=== PATIENT | male | born 1950 | race Caucasian/White ===

== ENCOUNTER 2016-12-15 07:22 | Inpatient (IN) | payer MEDICARE, MEDICAID ==
[2016-12-15] MEDS ORDERED: Albuterol/Ipratropium 3.0-0.5 MG/3 ML Neb Soln NEB ONE (08:21)
--- NOTE | 2016-12-15 08:23 | EDM.PDOC ---
ED HISTORY OF PRESENT ILLNESS - General Chief Complaint: Respiratory Problem Stated Complaint: shortness of breath Time Seen by Provider: 12/15/16 08:00 Source of Information: Reports: Patient, [facility] records History Limitations: Reports: No limitations - History of Present Illness INITIAL COMMENTS - FREE TEXT/NARRATIVE: 66 yo wm with PMH of COPD oxygen dependent presents to ER with a 1 day history of worsening breathing. Pt reports he had a "bad day" yesterday and that prompted the halfway to send patient to ER. Pt reports associated productive cough and congestion. Pt denies any fever/chills, denies any chest pain. Symptom Onset Date: 12/14/16 Timing/Duration: Reports: Day(s): (1) Severity: moderate Improves with: Reports: Rest Worsens with: Reports: Breathing Context, General: Reports: Activity Associated Symptoms (General): Reports: cough, cough w sputum, malaise, shortness of breath, weakness. Denies: chest pain, diaphoresis, fever/chills, headaches, loss of appetite, nausea/vomiting, rash, seizure, syncope - Related Data Allergies/ADRs: Allergies Allergy/AdvReac Type Severity Reaction Status Date / Time nefazodone Allergy Cannot Verified 12/15/16 07:41 Remember trazodone Allergy Cannot Verified 12/15/16 07:41 Remember Home Meds: Home Meds Acetaminophen [Tylenol Arthritis] 1 tab PO BID@0800,199907/22/16 [History] Acetaminophen [Tylenol] 650 mg PO Q4H PRN 07/22/16 [History] Aspirin [Halfprin] 1 tab PO DAILY@1200 07/22/16 [History] Bisacodyl [Dulcolax] 1 supp RECTAL BEDTIME PRN 07/22/16 [History] Carvedilol 18.75 mg PO BID@0800,199907/22/16 [History] Clopidogrel [Plavix] 1 tab PO DAILY 07/22/16 [History] Divalproex Sodium [Depakote ER] 500 mg PO QID@08,12,16,20 07/22/16 [History] Ergocalciferol (Vitamin D2) [Vitamin D2] 1 tab PO DAILY@1200 07/22/16 [History] Escitalopram [Lexapro] 1 tab PO DAILY@0800 07/22/16 [History] Ferrous Sulfate 1 tab PO TIDMEALS 07/22/16 [History] Finasteride 1 tab PO DAILY@0800 07/22/16 [History] Fluticasone Propionate [Flonase] 2 spray NASBOTH DAILY 07/22/16 [History] Gabapentin [Neurontin] 1 cap PO BID@0800,2000 07/22/16 [History] Magnesium Hydroxide [Milk of Magnesia] 30 ml PO DAILY PRN 07/22/16 [History] Magnesium Oxide 1 tab PO BID@0800,1800 07/22/16 [History] Multivitamin [Men's Multi-Vitamin] 1 tab PO DAILY@1200 07/22/16 [History] QUEtiapine Fumarate [Seroquel] 500 mg PO BEDTIME 07/22/16 [History] Sennosides/Docusate Sodium [Senna S Tablet] 2 tab PO DAILY@1800 07/22/16 [ History] Sodium Chloride [Saline Nasal [place]] 1 spray NASBOTH Q1H PRN 07/22/16 [History] Tamsulosin [Flomax] 1 tab PO BEDTIME 07/22/16 [History] atorvaSTATin [Lipitor] 1 tab PO BEDTIME 07/22/16 [History] traMADol HCl [Tramadol HCl] 1 tab PO Q6H PRN 07/22/16 [History] Arformoterol [Brovana] 2 ml INH BID@1000,2200 12/15/16 [History] Budesonide [Pulmicort] 2 ml INH DAILY PRN 12/15/16 [History] Budesonide [Pulmicort] 2 ml INH DAILY@0600 12/15/16 [History] Furosemide 40 mg PO DAILY@0800 12/15/16 [History] Liraglutide [Victoza] 0.6 mg SQ DAILY@199912/15/16 [History] Past Medical History Respiratory History: Reports: COPD Genitourinary History: Reports: Chronic renal insuffiency Other Neuro History: confusion Psychiatric History: Reports: Addiction, Depression Endocrine/Metabolic History: Reports: Diabetes, type II, Other (see below) Other Endocrine/Metabolic History: noontoxic mutinodular goiter Dermatologic History: Reports: Decubitus ulcer - Infectious Disease History Infectious Disease History: Reports: Other (see below) Other Infectious Disease History: unknown Social & Family History - Tobacco Use Smoking Status *Q: Former Smoker - Caffeine Use Caffeine Use: Reports: Other Other Caffeine Use: unknown ED ROS GENERAL - Review of Systems Review Of Systems: See Below Constitutional: Reports: no symptoms HEENT: Reports: No symptoms Respiratory: Reports: Shortness of Breath, Wheezing, Cough, Sputum. Denies: Hemoptysis Cardiovascular: Reports: No symptoms Endocrine: Reports: no symptoms GI/Abdominal: Reports: No symptoms : Reports: no symptoms Musculoskeletal: Reports: no symptoms Skin: Reports: no symptoms Neurological: Reports: No Symptoms Psychiatric: Reports: No symptoms Hematologic/Lymphatic: Reports: no symptoms Immunologic: Reports: no symptoms ED EXAM, GENERAL - Physical Exam Exam: See Below Exam Limited By: No limitations General Appearance: alert, WD/WN, no apparent distress Ears: normal external exam, normal canal, hearing grossly normal, normal TMs Nose: normal inspection, normal mucosa, no blood Throat/Mouth: Normal inspection, Normal lips, Normal teeth, Normal gums, Normal oropharynx, Normal voice, No airway compromise Head: atraumatic, normocephalic Neck: normal inspection, supple, non-tender, full range of motion Respiratory/Chest: decreased breath sounds, rhonchi, wheezing Cardiovascular: normal peripheral pulses, regular rate, rhythm, no edema, no gallop, no JVD, no murmur, no rub GI/Abdominal: normal bowel sounds, soft, non tender, no organomegaly, no distention, no abnormal bruit, no mass Back Exam: normal inspection, full range of motion, NT Extremities: pedal edema Neurological: alert, oriented, CN II-XII intact, normal cognition, normal gait, normal reflexes, no motor/sensory deficits Psychiatric: normal affect, normal mood Skin Exam: Warm, Dry, Intact, Normal color, Rash (psoriasis) Lymphatic: no adenopathy EKG INTERPRETATION EKG Date: 12/15/16 Time: 07:55 Rhythm: NSR Rate (beats/min): 85 [place]: normal P-wave: present QRS: normal ST-T: normal QT: normal Comparison: NA - no prior EKG Course - Vital Signs Last Recorded V/S: Last Vital Signs Temp 36.5 C 12/15/16 07:28 Pulse 87 12/15/16 07:28 Resp 20 12/15/16 07:28 BP 165/53 H 12/15/16 07:28 Pulse Ox 95 12/15/16 08:21 - Orders/Labs/Meds Orders: Active Orders 24 hr Category Date Time Status Patient Status Manage Transfer [TRANSFER] Routine ADT 12/15/16 09:34 Ordered Patient Status [ADT] Routine ADT 12/15/16 09:36 Ordered Bedrest Bathroom Privileges [RC] ASDIRECTED Care 12/15/16 09:37 Active Blood Glucose Check, Bedside [RC] QIDACANDBED Care 12/15/16 09:37 Active Cardiac Monitoring [RC] . DIRECTED Care 12/15/16 09:34 Active Cardiac Monitoring [RC] CONTINUOUS Care 12/15/16 09:37 Active EKG Documentation Completion [RC] ASDIRECTED Care 12/15/16 07:42 Active Oxygen Therapy [RC] PRN Care 12/15/16 09:37 Active Oxygen Therapy, ED [RC] ASDIRECTED Care 12/15/16 08:21 Active Peripheral IV Care [RC] . DIRECTED Care 12/15/16 09:39 Active RT Aerosol Therapy [RC] ASDIRECTED Care 12/15/16 08:21 Active RT Aerosol Therapy [RC] ASDIRECTED Care 12/15/16 09:39 Active VTE/DVT Education [RC] PER UNIT ROUTINE Care 12/15/16 09:37 Active Vital Signs [RC] Q4H Care 12/15/16 09:36 Active [employer] Diet [DIET] Diet 12/15/16 Breakfast Active CXR [Chest 1V Frontal] [CR] Stat Exams 12/15/16 07:41 Taken Chest wo Cont [CT] Stat Exams 12/15/16 08:34 Taken ABG [BLOOD GAS ARTERIAL] [BG] Stat Lab 12/15/16 08:34 Ordered BASIC METABOLIC PANEL,BMP [CHEM] AM Lab 12/16/16 05:11 Ordered CBC WITH AUTO DIFF [HEME] AM Lab 12/16/16 05:11 Ordered CULTURE BLOOD [BC] Stat Lab 12/15/16 09:39 Ordered CULTURE BLOOD [BC] Stat Lab 12/15/16 09:39 Ordered CULTURE SPUTUM + SMEAR [RM] Stat Lab 12/15/16 08:00 Received Acetaminophen [Tylenol] Med 12/15/16 09:37 Active 650 mg PO Q4H PRN Albuterol/Ipratropium [DuoNeb 3.0-0.5 MG/3 ML] Med 12/15/16 09:37 Active 3 ml NEB Q4H PRN Piperacillin/Tazobactam [Zosyn] 3.375 gm Med 12/15/16 09:45 Ordered Sodium Chloride 0.9% [Normal Saline] 50 ml IV Q6H Sodium Chloride 0.9% [Normal Saline] 1,000 ml Med 12/15/16 09:45 Active IV ASDIRECTED Sodium Chloride 0.9% [Syrex Flush] Med 12/15/16 09:37 Active 5 ml FLUSH Q8HR PRN Blood Culture x2 Reflex Set [OM.PC] Stat Oth 12/15/16 09:37 Ordered Peripheral IV Insertion Adult [OM.PC] Routine Oth 12/15/16 09:37 Ordered Resuscitation Status Routine Resus Stat 12/15/16 09:36 Ordered EKG 12 Lead [EK] Routine Ther 12/15/16 07:41 Ordered Medication Orders Acetaminophen (Tylenol) 650 mg PO Q4H PRN PRN Reason: Pain (Mild 1-3)/fever Albuterol/Ipratropium (Duoneb 3.0-0.5 Mg/3 Ml) 3 ml NEB Q4H PRN PRN Reason: Shortness Of Breath/wheezing Sodium Chloride (Normal Saline) 1,000 mls @ 75 mls/hr IV ASDIRECTED LAN Sodium Chloride (Syrex Flush) 5 ml FLUSH Q8HR PRN PRN Reason: Keep Vein Open Labs: Laboratory Tests 12/15/16 12/15/16 12/15/16 Range/Units 08:00 08:00 08:00 WBC 11.4 H (5.0-10.0) 10^3/uL RBC 3.40 L (4.50-6.00) 10^6/uL Hgb 10.2 L (13.0-17.0) g/dL Hct 30.7 L (40.0-52.0) % MCV 90.1 (82.0-92.0) fL MCH 30.0 (27.0-31.0) pg MCHC 33.3 (32.0-36.0) g/dL RDW 15.9 H (11.5-14.5) % Plt Count 194 (150-300) 10^3/uL MPV 7.1 L (7.4-10.4) fL Neut % (Auto) 68.4 (50.0-70.0) % Lymph % (Auto) 13.1 L (20.0-40.0) % Lynn % (Auto) 16.5 H (2.0-8.0) % Eos % (Auto) 2.0 (1.0-3.0) % Baso % (Auto) 0.0 (0.0-1.0) % Neut # (Auto) 7.8 H (2.5-7.0) 10^3/uL Lymph # (Auto) 1.5 (1.0-4.0) 10^3/uL Lynn # (Auto) 1.9 H (0.1-0.8) 10^3/uL Eos # (Auto) 0.2 (0.1-0.3) 10^3/uL Baso # (Auto) 0.0 (0.0-0.1) 10^3/uL Sodium 138 (136-145) mmol/L Potassium 4.8 (3.3-5.3) mmol/L Chloride 97 L (98-115) mmol/L Carbon Dioxide 42.0 H (21.0-32.0) mmol/L BUN 22 (6-25) mg/dL Creatinine 1.63 H (0.51-1.17) mg/dL Est Cr Clr Drug Dosing 40.55 mL/min Estimated GFR (MDRD) 42 mL/min Glucose 153 H (70-110) mg/dL Calcium 8.9 (8.7-10.3) mg/dL Total Bilirubin 0.3 (0.2-1.0) mg/dL AST 37 (15-37) U/L ALT 4 L (12-78) U/L Alkaline Phosphatase 80 (46-116) IU/L Creatine Kinase 132 (26-276) U/L CK-MB (CK-2) 1.70 (0.00-4.30) ng/mL Troponin I 0.05 (0.00-0.070) ng/mL B-Natriuretic Peptide 103 H (0-100) pg/mL Total Protein 7.4 (6.4-8.2) g/dL Albumin 2.42 L (3.00-4.80) g/dL Meds: Medications Generic Name Dose Route Start Last Admin Trade Name Freq PRN Reason Stop Dose Admin Acetaminophen 650 mg 12/15/16 09:37 Tylenol PO Q4H PRN Pain (Mild 1-3)/fever Albuterol/Ipratropium 3 ml 12/15/16 09:37 Duoneb 3.0-0.5 Mg/3 Ml NEB Q4H PRN Shortness Of Breath/wheezing Sodium Chloride 1,000 mls @ 75 mls/hr 12/15/16 09:45 Normal Saline IV ASDIRECTED LAN Sodium Chloride 5 ml 12/15/16 09:37 Syrex Flush FLUSH Q8HR PRN Keep Vein Open Discontinued Medications Generic Name Dose Route Start Last Admin Trade Name Freq PRN Reason Stop Dose Admin Albuterol/Ipratropium 3 ml 12/15/16 08:21 12/15/16 08:31 Duoneb 3.0-0.5 Mg/3 Ml NEB 12/15/16 08:22 3 ml ONETIME ONE Administration - Radiology Interpretation Free Text/Narrative:: CXR- Left lower lobe consolidation and atelectesis- recommending CT thorax CT thorax- Bilateral infiltrates Departure - Departure Time of Disposition: 09:33 Disposition: Admitted As Inpatient 64 Condition: fair Clinical Impression: Hypoxemia Pneumonia Qualifiers: Pneumonia type: due to unspecified organism Laterality: bilateral Lung location : lower lobe of lung Qualified Code(s): J18.9 - Pneumonia, unspecified organism Instructions: Chronic Obstructive Pulmonary Disease Exacerbation, [id number] , Shortness of Breath, [id number], Hypoxemia, Community-Acquired Pneumonia, Adult Referrals: Priscilla Castaneda MD [Primary Care Provider] - Forms: ED Department Discharge - My Orders Last 24 Hours: My Active Orders 12/15/16 07:41 CXR [Chest 1V Frontal] [CR] Stat EKG 12 Lead [EK] Routine 12/15/16 07:42 EKG Documentation Completion [RC] ASDIRECTED 12/15/16 08:00 CULTURE SPUTUM + SMEAR [RM] Stat 12/15/16 08:21 Oxygen Therapy, ED [RC] ASDIRECTED RT Aerosol Therapy [RC] ASDIRECTED 12/15/16 08:34 Chest wo Cont [CT] Stat ABG [BLOOD GAS ARTERIAL] [BG] Stat 12/15/16 09:34 Patient Status Manage Transfer [TRANSFER] Routine Cardiac Monitoring [RC] . DIRECTED 12/15/16 09:36 Patient Status [ADT] Routine Vital Signs [RC] Q4H Resuscitation Status Routine 12/15/16 09:37 Bedrest Bathroom Privileges [RC] ASDIRECTED Blood Glucose Check, Bedside [RC] QIDACANDBED Cardiac Monitoring [RC] CONTINUOUS Oxygen Therapy [RC] PRN VTE/DVT Education [RC] PER UNIT ROUTINE Acetaminophen [Tylenol] 650 mg PO Q4H PRN Albuterol/Ipratropium [DuoNeb 3.0-0.5 MG/3 ML] 3 ml NEB Q4H PRN Sodium Chloride 0.9% [Syrex Flush] 5 ml FLUSH Q8HR PRN Blood Culture x2 Reflex Set [OM.PC] Stat Peripheral IV Insertion Adult [OM.PC] Routine 12/15/16 09:39 Peripheral IV Care [RC] . DIRECTED RT Aerosol Therapy [RC] ASDIRECTED CULTURE BLOOD [BC] Stat CULTURE BLOOD [BC] Stat 12/15/16 09:45 Piperacillin/Tazobactam [Zosyn] 3.375 gm Sodium Chloride 0.9% [Normal Saline] 50 ml IV Q6H Sodium Chloride 0.9% [Normal Saline] 1,000 ml IV ASDIRECTED 12/15/16 Breakfast [employer] Diet [DIET] 12/16/16 05:11 BASIC METABOLIC PANEL,BMP [CHEM] AM CBC WITH AUTO DIFF [HEME] AM - Assessment/Plan Last 24 Hours: My Active Orders 12/15/16 07:41 CXR [Chest 1V Frontal] [CR] Stat EKG 12 Lead [EK] Routine 12/15/16 07:42 EKG Documentation Completion [RC] ASDIRECTED 12/15/16 08:00 CULTURE SPUTUM + SMEAR [RM] Stat 12/15/16 08:21 Oxygen Therapy, ED [RC] ASDIRECTED RT Aerosol Therapy [RC] ASDIRECTED 12/15/16 08:34 Chest wo Cont [CT] Stat ABG [BLOOD GAS ARTERIAL] [BG] Stat 12/15/16 09:34 Patient Status Manage Transfer [TRANSFER] Routine Cardiac Monitoring [RC] . DIRECTED 12/15/16 09:36 Patient Status [ADT] Routine Vital Signs [RC] Q4H Resuscitation Status Routine 12/15/16 09:37 Bedrest Bathroom Privileges [RC] ASDIRECTED Blood Glucose Check, Bedside [RC] QIDACANDBED Cardiac Monitoring [RC] CONTINUOUS Oxygen Therapy [RC] PRN VTE/DVT Education [RC] PER UNIT ROUTINE Acetaminophen [Tylenol] 650 mg PO Q4H PRN Albuterol/Ipratropium [DuoNeb 3.0-0.5 MG/3 ML] 3 ml NEB Q4H PRN Sodium Chloride 0.9% [Syrex Flush] 5 ml FLUSH Q8HR PRN Blood Culture x2 Reflex Set [OM.PC] Stat Peripheral IV Insertion Adult [OM.PC] Routine 12/15/16 09:39 Peripheral IV Care [RC] . DIRECTED RT Aerosol Therapy [RC] ASDIRECTED CULTURE BLOOD [BC] Stat CULTURE BLOOD [BC] Stat 12/15/16 09:45 Piperacillin/Tazobactam [Zosyn] 3.375 gm Sodium Chloride 0.9% [Normal Saline] 50 ml IV Q6H Sodium Chloride 0.9% [Normal Saline] 1,000 ml IV ASDIRECTED 12/15/16 Breakfast [employer] Diet [DIET] 12/16/16 05:11 BASIC METABOLIC PANEL,BMP [CHEM] AM CBC WITH AUTO DIFF [HEME] AM Assessment:: 1. left lower lobe pneumonia- halfway acquired 2. hypoxia 3. COPD Plan: 1. admit to hospital- [facility] 2. Zosyn 3.375g IV 3. duoneb treatments 4. supportive care
[2016-12-15] MEDS ORDERED: Albuterol/Ipratropium 3.0-0.5 MG/3 ML Neb Soln NEB PRN (09:37)
[2016-12-15] MEDS ORDERED: Acetaminophen 325 MG Tab PO PRN (09:37)
[2016-12-15] MEDS ORDERED: Sodium Chloride 0.9% 5 ML Syringe FLUSH PRN (09:37)
[2016-12-15] MEDS ORDERED: Piperacillin/Tazobactam 3.375 GM in Sodium Chloride 0.9% 50 ML IV SCH (09:45)
[2016-12-15] MEDS ORDERED: Nitroglycerin 0.4 MG Tab.SL SL PRN (11:25)
[2016-12-15] MEDS ORDERED: Atropine 0.1 MG/ML 10 ML Syringe IVPUSH PRN (11:25)
[2016-12-15] MEDS ORDERED: Lidocaine 2% 100 MG/5 ML Syringe IVPUSH PRN (11:25)
[2016-12-15] MEDS ORDERED: EPINEPHrine 1:10,000 1 MG/10 ML Syringe IVPUSH PRN (11:25)
[2016-12-15] MEDS ORDERED: Ceres/Mineral Oil/Petrolatum/Wool Alcohol Cream 57 GM Tube TOP PRN (12:01)
[2016-12-15] MEDS ORDERED: Bisacodyl 10 MG Supp RECTAL PRN (12:01)
[2016-12-15] MEDS ORDERED: Magnesium Hydroxide 400 MG/5 ML Susp 30 ML Cup PO PRN (12:01)
[2016-12-15] MEDS ORDERED: Fluticasone Propionate Nasal Spray 16 GM Bottle NASBOTH PRN (12:01)
[2016-12-15] MEDS ORDERED: Nystatin Topical Powder 15 GM Bottle TOP PRN ×2 (12:01)
[2016-12-15] MEDS ORDERED: Arformoterol 15 MCG/2 ML Neb Soln INH SCH ×2 (13:00→20:00)
[2016-12-15] MEDS ORDERED: Aspirin 81 MG Tab.EC PO SCH (13:00)
[2016-12-15] MEDS ORDERED: Clopidogrel 75 MG Tab PO SCH (13:00)
[2016-12-15] MEDS ORDERED: Levofloxacin/Dextrose 5%-Water 50 ML IV SCH (13:00)
[2016-12-15] MEDS ORDERED: traMADol 50 MG Tab PO PRN (13:00)
[2016-12-15] MEDS: Albuterol/Ipratropium 3.0-0.5 MG/3 ML Neb Soln NEB SCH ×3 (13:11→22:21)
[2016-12-15] MEDS ORDERED: Levofloxacin/Dextrose 5%-Water 100 ML IV SCH (14:00)
[2016-12-15] MEDS: Insulin Detemir 100 Units/ML 3 ML Pen SUBCUT SCH ×2 (14:34→20:52)
[2016-12-15] MEDS: predniSONE 20 MG Tab PO SCH (14:45)
[2016-12-15] MEDS: Carvedilol 12.5 MG Tab PO SCH ×2 (14:46→20:52)
[2016-12-15] MEDS: Finasteride 5 MG Tab PO SCH (14:47)
[2016-12-15] MEDS: Gabapentin 300 MG Cap PO SCH ×2 (14:47→20:53)
[2016-12-15] MEDS: Furosemide 40 MG Tab PO SCH (14:48)
[2016-12-15] MEDS: Magnesium Oxide 500 MG Tab PO SCH ×2 (14:49→18:00)
[2016-12-15] MEDS: Escitalopram 10 MG Tab PO SCH (14:49)
[2016-12-15] MEDS: Acetaminophen 650 MG Tab.ER PO SCH ×2 (14:49→20:54)
[2016-12-15] MEDS: Divalproex Sodium Delayed-Release 250 MG Tab.CR PO SCH ×3 (15:03→20:52)
[2016-12-15] MEDS: Sodium Chloride 0.9% 1,000 ML IV SCH (17:10)
[2016-12-15] MEDS: Piperacillin/Tazobactam/Dext 50 ML IV SCH ×2 (17:15→22:24)
[2016-12-15] MEDS ORDERED: INSULIN GLARGINE SQ SCH (20:00)
[2016-12-15] MEDS ORDERED: [UNRECOGNIZED DRUG - OTHER] SQ SCH (20:00)
[2016-12-15] MEDS: QUEtiapine 100 MG Tab PO SCH (20:54)
[2016-12-15] MEDS: Tamsulosin 0.4 MG Cap.ER PO SCH (20:54)
[2016-12-15] MEDS: Liraglutide (rDNA Origin) 0.6 MG/0.1 ML 3 ML Pen SUBCUT SCH (22:21)
[2016-12-16] MEDS: Piperacillin/Tazobactam/Dext 50 ML IV SCH ×4 (05:07→22:25)
[2016-12-16] MEDS: Albuterol/Ipratropium 3.0-0.5 MG/3 ML Neb Soln NEB SCH ×4 (05:56→22:23)
[2016-12-16] MEDS: Sodium Chloride 0.9% 1,000 ML IV SCH ×2 (08:12→22:25)
[2016-12-16] MEDS: Insulin Detemir 100 Units/ML 3 ML Pen SUBCUT SCH ×2 (08:14→20:57)
[2016-12-16] MEDS: Carvedilol 12.5 MG Tab PO SCH ×2 (08:16→21:02)
[2016-12-16] MEDS: Furosemide 40 MG Tab PO SCH (08:17)
[2016-12-16] MEDS: Divalproex Sodium Delayed-Release 250 MG Tab.CR PO SCH ×4 (08:17→21:03)
[2016-12-16] MEDS: Magnesium Oxide 500 MG Tab PO SCH ×2 (08:18→18:43)
[2016-12-16] MEDS: predniSONE 20 MG Tab PO SCH (08:18)
[2016-12-16] MEDS: Gabapentin 300 MG Cap PO SCH ×2 (08:18→21:03)
[2016-12-16] MEDS: Escitalopram 10 MG Tab PO SCH (08:18)
[2016-12-16] MEDS: Acetaminophen 650 MG Tab.ER PO SCH ×2 (08:19→21:03)
[2016-12-16] MEDS: Finasteride 5 MG Tab PO SCH (08:19)
--- NOTE | 2016-12-16 09:19 | PCM.HP ---
H&P History of Present Illness - General Date of Service: 12/16/16 Source of Information: Patient, Old records, Provider, RN History Limitations: Reports: No limitations - History of Present Illness Initial Comments - Free Text/Narative: This 66-year-old obese male who is a resident of a long-term care Center was admitted yesterday due to pneumonia. He does have a history of COPD and is on chronic oxygenation. He stated he had some worsening breathing with cough. He also stated that he coughed quite a bit the last week or 2 a broad quite a bit of phlegm. He did have an Ellik dated white count slightly will be worked up in the ED. Chest x-ray determined possible lung collapse which was not validated on subsequent CT. CT shows bilateral infiltrates without evidence of lung collapse also demonstrated Goiter. Undetermined if MRSA history. - Related Data Allergies/Adverse Reactions: Allergies Allergy/AdvReac Type Severity Reaction Status Date / Time nefazodone Allergy Cannot Verified 12/15/16 07:41 Remember trazodone Allergy Cannot Verified 12/15/16 07:41 Remember Home Medications: Home Meds Acetaminophen [Tylenol Arthritis] 1 tab PO BID@0800,199907/22/16 [History] Acetaminophen [Tylenol] 650 mg PO Q4H PRN 07/22/16 [History] Aspirin [Halfprin] 1 tab PO DAILY@1200 07/22/16 [History] Bisacodyl [Dulcolax] 10 mg RECTAL BEDTIME PRN 07/22/16 [History] Carvedilol 18.75 mg PO BID@0800,199907/22/16 [History] Clopidogrel [Plavix] 75 mg PO DAILY 07/22/16 [History] Escitalopram [Lexapro] 20 mg PO DAILY@0800 07/22/16 [History] Ferrous Sulfate 325 mg PO TIDMEALS 07/22/16 [History] Finasteride 5 mg PO DAILY@0800 07/22/16 [History] Fluticasone Propionate [Flonase] 2 spray NASBOTH DAILY PRN 07/22/16 [History] Gabapentin [Neurontin] 300 mg PO BID@0800,199907/22/16 [History] Magnesium Hydroxide [Milk of Magnesia] 30 ml PO DAILY PRN 07/22/16 [History] Magnesium Oxide 400 mg PO BID@0800,1800 07/22/16 [History] Multivitamin [Men's Multi-Vitamin] 1 tab PO DAILY@1200 07/22/16 [History] QUEtiapine Fumarate [Seroquel] 500 mg PO BEDTIME 07/22/16 [History] Sennosides/Docusate Sodium [Senna S Tablet] 2 tab PO DAILY@1800 07/22/16 [ History] Sodium Chloride [Saline Nasal [place]] 1 spray NASBOTH Q1H PRN 07/22/16 [History] Tamsulosin [Flomax] 0.4 mg PO BEDTIME 07/22/16 [History] atorvaSTATin [Lipitor] 40 mg PO BEDTIME 07/22/16 [History] traMADol HCl [Tramadol HCl] 50 mg PO Q6H PRN 07/22/16 [History] Aquaphor Advanced Therapy Ointment 1 applic TOP BID PRN 12/15/16 [History] Arformoterol [Brovana] 2 ml INH BID@1000,2200 12/15/16 [History] Budesonide [Pulmicort] 2 ml INH DAILY PRN 12/15/16 [History] Budesonide [Pulmicort] 2 ml INH DAILY@0600 12/15/16 [History] Cholecalciferol (Vitamin D3) [Vitamin D3] 2,000 unit PO DAILY@1200 12/15/16 [ History] Divalproex Sodium 250 mg PO QID@08,12,16,20 12/15/16 [History] Furosemide 40 mg PO DAILY@0800 12/15/16 [History] Insulin Glarg,Human.Rec.Analog [LantUS] 85 unit SQ BID@0800,199912/15/16 [ History] Insulin Glarg,Human.Rec.Analog [Lantus] 85 units SQ BID@0800,199912/15/16 [ History] Liraglutide [Victoza] 0.6 mg SQ DAILY@199912/15/16 [History] Non-Formulary Medication [NF Drug] 1 applic TOP BID PRN 12/15/16 [History] Nystatin 1 applic TOP DAILY PRN 12/15/16 [History] Nystatin [Nystop] 1 applic TOP DAILY PRN 12/15/16 [History] Selenium Sulfide/Aloe Vera [Selsun Blue Moist 1% Shampoo] 1 applic TOP ASDIRECTED PRN 12/15/16 [History] Selenium Sulfide/Aloe Vera [Selsun Blue Moist 1% Shampoo] 1 applic TOP WEEKLY [History] metFORMIN HCl [Metformin HCl ER] 1 tab PO DAILY 12/15/16 [History] metFORMIN HCl [Metformin HCl ER] 500 mg PO WITHBREAKFAST 12/15/16 [History] Past Medical History HEENT History: Reports: Cataract Cardiovascular History: Reports: High cholesterol, Hypertension Respiratory History: Reports: COPD Other Respiratory History: Emphysema Gastrointestinal History: Reports: Other (see below) Other Gastrointestinal History: Other diseases of the digestive system Genitourinary History: Reports: Chronic renal insuffiency Musculoskeletal History: Reports: Back pain, chronic, Neck pain, chronic, Osteoarthritis Neurological History: Reports: Other (see below) Other Neuro History: confusion Psychiatric History: Reports: Addiction, Depression Endocrine/Metabolic History: Reports: Diabetes, type II, Other (see below) Other Endocrine/Metabolic History: noontoxic mutinodular goiter Dermatologic History: Reports: Decubitus ulcer - Infectious Disease History Infectious Disease History: Reports: Other (see below) Other Infectious Disease History: unknown Social & Family History - Family History HEENT: Reports: Cataract (Cataract in his mother), Macular degeneration (Mother had cataract and father had macular degeneration) Cardiac: Reports: [place] (Father with myocardial infarction) Respiratory: Reports: None GI: Reports: None : Reports: Renal disease/insufficiency, Other (see below) (Paternal grandmother kidney disease) Musculoskeletal: Reports: None Neurological: Reports: None Psychiatric: Reports: None Endocrine/Metabolic: Reports: None Hematologic: Reports: None Immunologic: Reports: None Dermatologic: Reports: None Oncologic: Reports: None - Tobacco Use Smoking Status *Q: Former Smoker Used Tobacco, but Quit: Yes Month Tobacco Last Used: 2015 - Caffeine Use Caffeine Use: Reports: Soda Other Caffeine Use: unknown - Recreational Drug Use Recreational Drug Use: No H&P Review of Systems - Review of Systems: Review Of Systems: See Below General: Reports: no symptoms HEENT: Reports: other (runny nose) Pulmonary: Reports: Shortness of Breath, Cough (mild--sputum past 2-3 weeks copious), Sputum, Other (uses skooter at NH, decline in tolerance) Cardiovascular: Reports: dyspnea on exertion, edema Gastrointestinal: Reports: Abdominal pain. Denies: Constipation (2 large bm last night. ), Diarrhea Genitourinary: Reports: no symptoms Skin: Reports: rash, change in color Psychiatric: Reports: no symptoms Neurological: Reports: No Symptoms, Pre-Existing Deficit, Gait Disturbance Exam - Exam Exam: See Below - Vital Signs Vital Signs: Last Vital Signs Temp 96.7 F 12/16/16 07:00 Pulse 62 12/16/16 08:16 Resp 20 12/16/16 07:00 BP 145/63 H 12/16/16 08:16 Pulse Ox 96 12/16/16 07:00 Weight: 265 lb 6.4 oz - Exam Quality Assessment: supplemental oxygen General: alert, oriented, cooperative. No: mild distress HEENT: Hearing intact, Mucosa moist & pink, Rhinitis Neck: supple, trachea midline. No: JVD Lungs: Rhonchi Cardiovascular: regular rate, regular rhythm Abdomen: Normal Bowel Sounds, Soft (Male) Exam: Deferred Skin: rash (fungal in appearance rash right lower abd--intergo fold ), other Neurological: cranial nerves intact, normal speech, other (Gait not assessed) Neuro Extensive - Mental Status: alert, oriented x3, normal mood/affect, normal cognition Neuro Extensive - Motor, Sensory, Reflexes: CN II-XII intact (Grossly intact). No: hemiplagia (L), hemiplagia (R) Psychiatric: alert, normal affect, normal mood - Patient Data Lab Results last 24 hrs: Laboratory Results - last 24 hr 12/15/16 12/15/16 12/15/16 Range/Units 11:28 17:58 20:50 WBC (5.0-10.0) 10^3/uL RBC (4.50-6.00) 10^6/uL Hgb (13.0-17.0) g/dL Hct (40.0-52.0) % MCV (82.0-92.0) fL MCH (27.0-31.0) pg MCHC (32.0-36.0) g/dL RDW (11.5-14.5) % Plt Count (150-300) 10^3/uL MPV (7.4-10.4) fL Neut % (Auto) (50.0-70.0) % Lymph % (Auto) (20.0-40.0) % Lynn % (Auto) (2.0-8.0) % Eos % (Auto) (1.0-3.0) % Baso % (Auto) (0.0-1.0) % Neut # (Auto) (2.5-7.0) 10^3/uL Lymph # (Auto) (1.0-4.0) 10^3/uL Lynn # (Auto) (0.1-0.8) 10^3/uL Eos # (Auto) (0.1-0.3) 10^3/uL Baso # (Auto) (0.0-0.1) 10^3/uL Sodium (136-145) mmol/L Potassium (3.3-5.3) mmol/L Chloride (98-115) mmol/L Carbon Dioxide (21.0-32.0) mmol/L BUN (6-25) mg/dL Creatinine (0.51-1.17) mg/dL Est Cr Clr Drug Dosing mL/min Estimated GFR (MDRD) mL/min Glucose (70-110) mg/dL POC Glucose 157 H 197 H 385 H (74-106) mg/dl Calcium (8.7-10.3) mg/dL 12/16/16 12/16/16 12/16/16 Range/Units 06:22 07:55 07:55 WBC 6.5 (5.0-10.0) 10^3/uL RBC 3.13 L (4.50-6.00) 10^6/uL Hgb 9.4 L (13.0-17.0) g/dL Hct 28.3 L (40.0-52.0) % MCV 90.6 (82.0-92.0) fL MCH 30.2 (27.0-31.0) pg MCHC 33.3 (32.0-36.0) g/dL RDW 15.9 H (11.5-14.5) % Plt Count 167 (150-300) 10^3/uL MPV 6.9 L (7.4-10.4) fL Neut % (Auto) 67.4 (50.0-70.0) % Lymph % (Auto) 19.0 L (20.0-40.0) % Lynn % (Auto) 13.2 H (2.0-8.0) % Eos % (Auto) 0.1 L (1.0-3.0) % Baso % (Auto) 0.3 (0.0-1.0) % Neut # (Auto) 4.4 (2.5-7.0) 10^3/uL Lymph # (Auto) 1.2 (1.0-4.0) 10^3/uL Lynn # (Auto) 0.9 H (0.1-0.8) 10^3/uL Eos # (Auto) 0.0 L (0.1-0.3) 10^3/uL Baso # (Auto) 0.0 (0.0-0.1) 10^3/uL Sodium 135 L (136-145) mmol/L Potassium 4.8 (3.3-5.3) mmol/L Chloride 93 L (98-115) mmol/L Carbon Dioxide 39.4 H (21.0-32.0) mmol/L BUN 30 H (6-25) mg/dL Creatinine 1.60 H (0.51-1.17) mg/dL Est Cr Clr Drug Dosing 39.88 mL/min Estimated GFR (MDRD) 43 mL/min Glucose 272 H (70-110) mg/dL POC Glucose 267 H (74-106) mg/dl Calcium 8.6 L (8.7-10.3) mg/dL Result Diagrams: 12/17/16 07:05 12/17/16 07:05 *Q Meaningful Use (ADM) - VTE *Q VTE Criteria *Q: - Stroke *Q Stroke Criteria *Q: - AMI *Q AMI Criteria *Q: Problem List Initiated/Reviewed/Updated: Yes Orders Last 24hrs: Active Orders 24 hr Category Date Time Status Bedrest Bathroom Privileges [] ASDIRECTED Care 12/15/16 09:37 Active Blood Glucose Check, Bedside [] QIDACANDBED Care 12/15/16 09:37 Active Cardiac Monitoring [] 0300,0700,1100,1500,1900,2300 Care 12/15/16 09:37 Active Incentive Spirometry [RT Incentive Spirometry] [] Care 12/15/16 13:02 Active ASDIRECTED Oxygen Therapy [] DAILY Care 12/15/16 09:37 Active RT Aerosol Therapy [RC] ASDIRECTED Care 12/15/16 09:39 Active CULTURE BLOOD [BC] Stat Lab 12/15/16 09:39 Ordered CULTURE BLOOD [BC] Stat Lab 12/15/16 09:39 Ordered Acetaminophen [Tylenol Arthritis Pain] Med 12/15/16 13:00 Active 650 mg PO BID@0800,2000 Acetaminophen [Tylenol] Med 12/15/16 09:37 Active 650 mg PO Q4H PRN Albuterol/Ipratropium [DuoNeb 3.0-0.5 MG/3 ML] Med 12/15/16 13:01 Active 3 ml NEB Q6HRRT Aspirin [Halfprin] Med 12/15/16 13:00 Hold 81 mg PO DAILY@1200 Atropine [Atropine 0.1 MG/ML] Med 12/15/16 11:25 Active 0 mg IVPUSH ASDIRECTED PRN Bisacodyl [Dulcolax] Med 12/15/16 12:01 Active 10 mg RECTAL BEDTIME PRN Carvedilol [Coreg] Med 12/15/16 13:00 Active 18.75 mg PO BID@0800,2000 [place]/Min Oil/Orquidea/Wool Alcoh [Eucerin Creme] Med 12/15/16 12:01 Active 0 gm TOP BID PRN Clopidogrel [Plavix] Med 12/15/16 13:00 Hold 75 mg PO DAILY Divalproex Sodium Med 12/15/16 13:00 Active 250 mg PO QID@08,12,16,20 Docusate Sodium/Sennosides [Senna Plus] Med 12/15/16 18:00 Active 2 tab PO DAILY@1800 EPINEPHrine [EPINEPHrine 1:10,000] Med 12/15/16 11:25 Active 1 mg IVPUSH ASDIRECTED PRN Escitalopram [Lexapro] Med 12/15/16 13:00 Active 20 mg PO DAILY@0800 Finasteride [Proscar] Med 12/15/16 13:00 Active 5 mg PO DAILY@0800 Fluticasone Propionate [Flonase] Med 12/15/16 12:01 Active 0 gm NASBOTH DAILY PRN Furosemide [Lasix] Med 12/15/16 13:00 Active 40 mg PO DAILY@0800 Gabapentin [Neurontin] Med 12/15/16 13:00 Active 300 mg PO BID@0800,1999 Insulin Detemir [Levemir] Med 12/15/16 13:00 Active 85 unit SUBCUT BID@08,1999 Levofloxacin/Dextrose 5%-Water [Levaquin in D5W 250 MG/ Med 12/15/16 13:00 Active 50 ML] 50 ml IV Q48H Levofloxacin/Dextrose 5%-Water [Levaquin in D5W 500 MG/ Med 12/15/16 14:00 Active 100 ML] 100 ml IV Q48H Lidocaine 2% [Xylocaine 2%] Med 12/15/16 11:25 Active 0 mg IVPUSH ASDIRECTED PRN Liraglutide [Victoza] Med 12/15/16 20:00 Active 0.6 mg SUBCUT DAILY@1999 Magnesium Hydroxide [Milk of Magnesia] Med 12/15/16 12:01 Active 30 ml PO DAILY PRN Magnesium Oxide Med 12/15/16 13:00 Active 500 mg PO BID@0800,1800 Nitroglycerin [Nitrostat] Med 12/15/16 11:25 Active 0.4 mg SL ASDIRECTED PRN Nystatin [Nystop] Med 12/15/16 12:01 Active 0 gm TOP DAILY PRN Piperacillin/Tazobactam/Dext [Zosyn in Dextrose Iso- Med 12/15/16 17:00 Active Osmotic 3.375 GM] 50 ml IV Q6HR QUEtiapine [SEROquel] Med 12/15/16 21:00 Active 500 mg PO BEDTIME Sodium Chloride 0.9% [Normal Saline] 1,000 ml Med 12/15/16 09:45 Active IV ASDIRECTED Sodium Chloride 0.9% [Syrex Flush] Med 12/15/16 09:37 Active 5 ml FLUSH Q8HR PRN Tamsulosin [Flomax] Med 12/15/16 21:00 Active 0.4 mg PO BEDTIME predniSONE Med 12/15/16 13:00 Active 60 mg PO WITHBREAKFAST traMADol [Ultram] Med 12/15/16 13:00 Active 50 mg PO Q6HR PRN Blood Culture x2 Reflex Set [OM.PC] Stat Oth 12/15/16 09:37 Ordered Peripheral IV Insertion Adult [OM.PC] Routine Oth 12/15/16 09:37 Ordered Medication Orders Acetaminophen (Tylenol) 650 mg PO Q4H PRN PRN Reason: Pain (Mild 1-3)/fever Acetaminophen (Tylenol Arthritis Pain) 650 mg PO BID@799,1999 COUNT INCLUDES THE [facility] Last Admin: 12/16/16 08:19 Dose: 650 mg Admin: 12/15/16 20:54 Dose: 650 mg Admin: 12/15/16 14:49 Dose: 650 mg Albuterol/Ipratropium (Duoneb 3.0-0.5 Mg/3 Ml) 3 ml NEB Q6HRRT COUNT INCLUDES THE [facility] Last Admin: 12/16/16 05:56 Dose: 3 ml Admin: 12/15/16 22:21 Dose: 3 ml Admin: 12/15/16 17:10 Dose: 3 ml Admin: 12/15/16 13:11 Dose: 3 ml Aspirin (Halfprin) 81 mg PO DAILY@1200 COUNT INCLUDES THE [facility] Atropine Sulfate (Atropine 0.1 Mg/Ml) 0 mg IVPUSH ASDIRECTED PRN PRN Reason: Heart Bisacodyl (Dulcolax) 10 mg RECTAL BEDTIME PRN PRN Reason: Constipation Carvedilol (Coreg) 18.75 mg PO BID@ COUNT INCLUDES THE [facility] Last Admin: 12/16/16 08:16 Dose: 18.75 mg Admin: 12/15/16 20:52 Dose: 18.75 mg Admin: 12/15/16 14:46 Dose: 18.75 mg Clopidogrel Bisulfate (Plavix) 75 mg PO DAILY COUNT INCLUDES THE [facility] Divalproex Sodium (Divalproex Sodium) 250 mg PO QID@08,12,16,20 COUNT INCLUDES THE [facility] Last Admin: 12/16/16 08:17 Dose: 250 mg Admin: 12/15/16 20:52 Dose: 250 mg Admin: 12/15/16 16:17 Dose: Admin: 12/15/16 15:03 Dose: 250 mg Epinephrine HCl (Epinephrine 1:10,000) 1 mg IVPUSH ASDIRECTED PRN PRN Reason: Heart Escitalopram Oxalate (Lexapro) 20 mg PO DAILY@0800 COUNT INCLUDES THE [facility] Last Admin: 12/16/16 08:18 Dose: 20 mg Admin: 12/15/16 14:49 Dose: 20 mg Finasteride (Proscar) 5 mg PO DAILY@0800 COUNT INCLUDES THE [facility] Last Admin: 12/16/16 08:19 Dose: 5 mg Admin: 12/15/16 14:47 Dose: 5 mg Fluticasone Propionate (Flonase) 0 gm NASBOTH DAILY PRN PRN Reason: paranasal sinus disease Furosemide (Lasix) 40 mg PO DAILY@0800 COUNT INCLUDES THE [facility] Last Admin: 12/16/16 08:17 Dose: 40 mg Admin: 12/15/16 14:48 Dose: 40 mg Gabapentin (Neurontin) 300 mg PO BID@799,1999 COUNT INCLUDES THE [facility] Last Admin: 12/16/16 08:18 Dose: 300 mg Admin: 12/15/16 20:53 Dose: 300 mg Admin: 12/15/16 14:47 Dose: 300 mg Sodium Chloride (Normal Saline) 1,000 mls @ 75 mls/hr IV ASDIRECTED COUNT INCLUDES THE [facility] Last Admin: 12/16/16 08:12 Dose: 75 mls/hr Infusion: 12/16/16 06:30 Dose: 75 mls/hr Admin: 12/15/16 17:10 Dose: 75 mls/hr Piperacillin/Tazobactam/Dextrose (Zosyn In Dextrose Iso-Osmotic 3.375 Gm) 50 mls @ 100 mls/hr IV Q6HR COUNT INCLUDES THE [facility] Last Admin: 12/16/16 05:07 Dose: 100 mls/hr Infusion: 12/15/16 22:54 Dose: 100 mls/hr Admin: 12/15/16 22:24 Dose: 100 mls/hr Infusion: 12/15/16 17:45 Dose: 100 mls/hr Admin: 12/15/16 17:15 Dose: 100 mls/hr Levofloxacin/Dextrose (Levaquin In D5w 250 Mg/50 Ml) 50 mls @ 50 mls/hr IV Q48H COUNT INCLUDES THE [facility] Last Admin: 12/15/16 16:16 Dose: 50 mls/hr Levofloxacin/Dextrose (Levaquin In D5w 500 Mg/100 Ml) 100 mls @ 100 mls/hr IV Q48H COUNT INCLUDES THE [facility] Last Admin: 12/15/16 14:53 Dose: 100 mls/hr Insulin Detemir (Levemir) 85 unit SUBCUT BID@799,1999 COUNT INCLUDES THE [facility] Last Admin: 12/16/16 08:14 Dose: 85 units Admin: 12/15/16 20:52 Dose: 85 units Admin: 12/15/16 14:34 Dose: 85 units Lidocaine HCl (Xylocaine 2%) 0 mg IVPUSH ASDIRECTED PRN PRN Reason: Heart Liraglutide (Victoza) 0.6 mg SUBCUT DAILY@2000 COUNT INCLUDES THE [facility] Last Admin: 12/15/16 22:21 Dose: Magnesium Hydroxide (Milk Of Magnesia) 30 ml PO DAILY PRN PRN Reason: Constipation Magnesium Oxide (Magnesium Oxide) 500 mg PO BID@0800,1800 COUNT INCLUDES THE [facility] Last Admin: 12/16/16 08:18 Dose: 500 mg Admin: 12/15/16 18:00 Dose: 500 mg Admin: 12/15/16 14:49 Dose: 500 mg Multi-Ingredient Ointment (Eucerin Creme) 0 gm TOP BID PRN PRN Reason: Dryness Nitroglycerin (Nitrostat) 0.4 mg SL ASDIRECTED PRN PRN Reason: Heart Nystatin (Nystop) 0 gm TOP DAILY PRN PRN Reason: Cutaneous Candidiasis Prednisone (Prednisone) 60 mg PO WITHBREAKFAST COUNT INCLUDES THE [facility] Stop: 12/17/16 08:01 Last Admin: 12/16/16 08:18 Dose: 60 mg Admin: 12/15/16 14:45 Dose: 60 mg Quetiapine Fumarate (Seroquel) 500 mg PO BEDTIME COUNT INCLUDES THE [facility] Last Admin: 12/15/16 20:54 Dose: 500 mg Senna/Docusate Sodium (Senna Plus) 2 tab PO DAILY@1800 COUNT INCLUDES THE [facility] Last Admin: 12/15/16 18:00 Dose: 2 tab Sodium Chloride (Syrex Flush) 5 ml FLUSH Q8HR PRN PRN Reason: Keep Vein Open Tamsulosin HCl (Flomax) 0.4 mg PO BEDTIME COUNT INCLUDES THE [facility] Last Admin: 12/15/16 20:54 Dose: 0.4 mg Tramadol HCl (Ultram) 50 mg PO Q6HR PRN PRN Reason: moderate to mod severe pain Assessment/Plan Comment:: This 66-year-old obese male who is a resident of a long-term care Center was admitted yesterday due to pneumonia. He does have a history of COPD and is on chronic oxygenation. He stated he had some worsening breathing with cough. He also stated that he coughed quite a bit the last week or 2 a broad quite a bit of phlegm. He did have an Ellik dated white count slightly will be worked up in the ED. Chest x-ray determined possible lung collapse which was not validated on subsequent CT. CT shows bilateral infiltrates without evidence of lung collapse also demonstrated Goiter. Undetermined if MRSA history. CODE STATUS, full code Impression/plan Pneumonia, healthcare acquired, broad-spectrum Zosyn along with levofloxacin, blood culture pending, sputum culture gram-positive cocci--will hold off on vancomycin however patient improving clinically. Oral prednisone 60 mg x3 days. Stop date placed Chronic obstructive pulmonary disease, no acute exacerbation chronic home O2, duo nebs scheduled, OTHER CHRONIC MEDICAL CONDITIONS Diabetes mellitus Hypertension BPH Obesity--with significant diffuse edema Coronary artery disease
[2016-12-16] MEDS: Enoxaparin 40 MG/0.4 ML Syringe SUBCUT SCH (15:08)
[2016-12-16] MEDS: Liraglutide (rDNA Origin) 0.6 MG/0.1 ML 3 ML Pen SUBCUT SCH (20:57)
[2016-12-16] MEDS: Tamsulosin 0.4 MG Cap.ER PO SCH (21:03)
[2016-12-16] MEDS: QUEtiapine 100 MG Tab PO SCH (21:03)
[2016-12-17] MEDS: Piperacillin/Tazobactam/Dext 50 ML IV SCH ×4 (04:55→22:54)
[2016-12-17] MEDS: Albuterol/Ipratropium 3.0-0.5 MG/3 ML Neb Soln NEB SCH ×4 (04:55→22:54)
[2016-12-17] MEDS: Carvedilol 12.5 MG Tab PO SCH ×2 (08:09→20:40)
[2016-12-17] MEDS: Insulin Detemir 100 Units/ML 3 ML Pen SUBCUT SCH ×2 (08:11→20:45)
[2016-12-17] MEDS: Furosemide 40 MG Tab PO SCH (08:11)
[2016-12-17] MEDS: Divalproex Sodium Delayed-Release 250 MG Tab.CR PO SCH ×4 (08:11→20:41)
[2016-12-17] MEDS: Escitalopram 10 MG Tab PO SCH (08:12)
[2016-12-17] MEDS: predniSONE 20 MG Tab PO SCH (08:12)
[2016-12-17] MEDS: Magnesium Oxide 500 MG Tab PO SCH ×2 (08:12→17:59)
[2016-12-17] MEDS: Finasteride 5 MG Tab PO SCH (08:12)
[2016-12-17] MEDS: Gabapentin 300 MG Cap PO SCH ×2 (08:12→20:42)
[2016-12-17] MEDS: Enoxaparin 40 MG/0.4 ML Syringe SUBCUT SCH (08:13)
[2016-12-17] MEDS: Acetaminophen 650 MG Tab.ER PO SCH ×2 (08:13→20:42)
--- NOTE | 2016-12-17 11:02 | PCM.PN ---
- General Info Date of Service: 12/17/16 Functional Status: Reports: pain controlled, tolerating diet. Denies: new symptoms - Review of Systems General: Reports: Appetite. Denies: Fever, Weakness, Night Sweats HEENT: Reports: no symptoms Pulmonary: Reports: cough. Denies: shortness of breath, sputum, wheezing Cardiovascular: Reports: Edema Gastrointestinal: Reports: No symptoms Genitourinary: Reports: no symptoms Musculoskeletal: Reports: no symptoms Skin: Reports: dryness Neurological: Reports: Pre-Existing Deficit, Difficulty Walking, Gait Disturbance. Denies: Syncope Psychiatric: Reports: no symptoms - Patient Data Vitals - most recent: Last Vital Signs Temp 96.3 F 12/17/16 06:43 Pulse 60 12/17/16 08:09 Resp 20 12/17/16 06:43 BP 148/64 H 12/17/16 08:09 Pulse Ox 97 12/17/16 06:43 Weight - most recent: 265 lb 6.4 oz I&O - last 24 hours: Intake & Output 12/16/16 12/17/16 12/17/16 22:59 06:59 14:59 Intake Total 909 910 Output Total 800 Balance 109 910 Lab Results last 24 hrs: Laboratory Results - last 24 hr 12/16/16 12/16/16 12/16/16 Range/Units 11:26 18:11 20:48 WBC (5.0-10.0) 10^3/uL RBC (4.50-6.00) 10^6/uL Hgb (13.0-17.0) g/dL Hct (40.0-52.0) % MCV (82.0-92.0) fL MCH (27.0-31.0) pg MCHC (32.0-36.0) g/dL RDW (11.5-14.5) % Plt Count (150-300) 10^3/uL MPV (7.4-10.4) fL Neut % (Auto) (50.0-70.0) % Lymph % (Auto) (20.0-40.0) % [place] % (Auto) (2.0-8.0) % Eos % (Auto) (1.0-3.0) % Baso % (Auto) (0.0-1.0) % Neut # (Auto) (2.5-7.0) 10^3/uL Lymph # (Auto) (1.0-4.0) 10^3/uL [place] # (Auto) (0.1-0.8) 10^3/uL Eos # (Auto) (0.1-0.3) 10^3/uL Baso # (Auto) (0.0-0.1) 10^3/uL Sodium (136-145) mmol/L Potassium (3.3-5.3) mmol/L Chloride (98-115) mmol/L Carbon Dioxide (21.0-32.0) mmol/L BUN (6-25) mg/dL Creatinine (0.51-1.17) mg/dL Est Cr Clr Drug Dosing mL/min Estimated GFR (MDRD) mL/min Glucose (70-110) mg/dL POC Glucose 348 H 378 H 378 H (74-106) mg/dl Calcium (8.7-10.3) mg/dL 12/17/16 12/17/16 12/17/16 Range/Units 05:06 07:05 07:05 WBC 7.9 (5.0-10.0) 10^3/uL RBC 3.19 L (4.50-6.00) 10^6/uL Hgb 9.7 L (13.0-17.0) g/dL Hct 28.8 L (40.0-52.0) % MCV 90.2 (82.0-92.0) fL MCH 30.3 (27.0-31.0) pg MCHC 33.6 (32.0-36.0) g/dL RDW 15.9 H (11.5-14.5) % Plt Count 194 (150-300) 10^3/uL MPV 7.0 L (7.4-10.4) fL Neut % (Auto) 55.0 (50.0-70.0) % Lymph % (Auto) 20.1 (20.0-40.0) % [place] % (Auto) 24.2 H (2.0-8.0) % Eos % (Auto) 0.4 L (1.0-3.0) % Baso % (Auto) 0.3 (0.0-1.0) % Neut # (Auto) 4.4 (2.5-7.0) 10^3/uL Lymph # (Auto) 1.6 (1.0-4.0) 10^3/uL [place] # (Auto) 1.9 H (0.1-0.8) 10^3/uL Eos # (Auto) 0.0 L (0.1-0.3) 10^3/uL Baso # (Auto) 0.0 (0.0-0.1) 10^3/uL Sodium 139 (136-145) mmol/L Potassium 4.1 (3.3-5.3) mmol/L Chloride 97 L (98-115) mmol/L Carbon Dioxide 38.4 H (21.0-32.0) mmol/L BUN 32 H (6-25) mg/dL Creatinine 1.63 H (0.51-1.17) mg/dL Est Cr Clr Drug Dosing 39.14 mL/min Estimated GFR (MDRD) 42 mL/min Glucose 146 H (70-110) mg/dL POC Glucose 241 H (74-106) mg/dl Calcium 8.8 (8.7-10.3) mg/dL Med Orders - Current: Current Medications Acetaminophen (Tylenol) 650 mg PO Q4H PRN PRN Reason: Pain (Mild 1-3)/fever Acetaminophen (Tylenol Arthritis Pain) 650 mg PO BID@ [facility] Last Admin: 12/17/16 08:13 Dose: 650 mg Albuterol/Ipratropium (Duoneb 3.0-0.5 Mg/3 Ml) 3 ml NEB Q6HRRT [facility] Last Admin: 12/17/16 04:55 Dose: 3 ml Aspirin (Halfprin) 81 mg PO DAILY@1200 [facility] Atropine Sulfate (Atropine 0.1 Mg/Ml) 0 mg IVPUSH ASDIRECTED PRN PRN Reason: Heart Bisacodyl (Dulcolax) 10 mg RECTAL BEDTIME PRN PRN Reason: Constipation Carvedilol (Coreg) 18.75 mg PO BID@ [facility] Last Admin: 12/17/16 08:09 Dose: 18.75 mg Clopidogrel Bisulfate (Plavix) 75 mg PO DAILY [facility] Divalproex Sodium (Divalproex Sodium) 250 mg PO QID@08,12,16,20 [facility] Last Admin: 12/17/16 08:11 Dose: 250 mg Enoxaparin Sodium (Lovenox) 40 mg SUBCUT DAILY [facility] Last Admin: 12/17/16 08:13 Dose: 40 mg Epinephrine HCl (Epinephrine 1:10,000) 1 mg IVPUSH ASDIRECTED PRN PRN Reason: Heart Escitalopram Oxalate (Lexapro) 20 mg PO DAILY@08 [facility] Last Admin: 12/17/16 08:12 Dose: 20 mg Finasteride (Proscar) 5 mg PO DAILY@08 [facility] Last Admin: 12/17/16 08:12 Dose: 5 mg Fluticasone Propionate (Flonase) 0 gm NASBOTH DAILY PRN PRN Reason: paranasal sinus disease Furosemide (Lasix) 40 mg PO DAILY@799 [facility] Last Admin: 12/17/16 08:11 Dose: 40 mg Gabapentin (Neurontin) 300 mg PO BID@ [facility] Last Admin: 12/17/16 08:12 Dose: 300 mg Sodium Chloride (Normal Saline) 1,000 mls @ 75 mls/hr IV ASDIRECTED [facility] Last Admin: 12/16/16 22:25 Dose: 75 mls/hr Piperacillin/Tazobactam/Dextrose (Zosyn In Dextrose Iso-Osmotic 3.375 Gm) 50 mls @ 100 mls/hr IV Q6HR [facility] Last Admin: 12/17/16 04:55 Dose: 100 mls/hr Levofloxacin/Dextrose (Levaquin In D5w 250 Mg/50 Ml) 50 mls @ 50 mls/hr IV Q48H [facility] Last Admin: 12/15/16 16:16 Dose: 50 mls/hr Levofloxacin/Dextrose (Levaquin In D5w 500 Mg/100 Ml) 100 mls @ 100 mls/hr IV Q48H [facility] Last Admin: 12/15/16 14:53 Dose: 100 mls/hr Insulin Detemir (Levemir) 85 unit SUBCUT BID@ [facility] Last Admin: 12/17/16 08:11 Dose: 85 units Lidocaine HCl (Xylocaine 2%) 0 mg IVPUSH ASDIRECTED PRN PRN Reason: Heart Liraglutide (Victoza) 0.6 mg SUBCUT DAILY@1999 [facility] Last Admin: 12/16/16 20:57 Dose: 0.6 mg Magnesium Hydroxide (Milk Of Magnesia) 30 ml PO DAILY PRN PRN Reason: Constipation Magnesium Oxide (Magnesium Oxide) 500 mg PO BID@0800,1800 [facility] Last Admin: 12/17/16 08:12 Dose: 500 mg Multi-Ingredient Ointment (Eucerin Creme) 0 gm TOP BID PRN PRN Reason: Dryness Nitroglycerin (Nitrostat) 0.4 mg SL ASDIRECTED PRN PRN Reason: Heart Nystatin (Nystop) 0 gm TOP DAILY PRN PRN Reason: Cutaneous Candidiasis Quetiapine Fumarate (Seroquel) 500 mg PO BEDTIME [facility] Last Admin: 12/16/16 21:03 Dose: 500 mg Senna/Docusate Sodium (Senna Plus) 2 tab PO DAILY@1800 [facility] Last Admin: 12/16/16 18:42 Dose: 2 tab Sodium Chloride (Syrex Flush) 5 ml FLUSH Q8HR PRN PRN Reason: Keep Vein Open Tamsulosin HCl (Flomax) 0.4 mg PO BEDTIME [facility] Last Admin: 12/16/16 21:03 Dose: 0.4 mg Tramadol HCl (Ultram) 50 mg PO Q6HR PRN PRN Reason: moderate to mod severe pain Discontinued Medications Albuterol/Ipratropium (Duoneb 3.0-0.5 Mg/3 Ml) 3 ml NEB ONETIME ONE Stop: 12/15/16 08:22 Last Admin: 12/15/16 08:31 Dose: 3 ml Albuterol/Ipratropium (Duoneb 3.0-0.5 Mg/3 Ml) 3 ml NEB Q4H PRN PRN Reason: Shortness Of Breath/wheezing Arformoterol Tartrate (Brovana) 15 mcg INH BID@1000,2200 [facility] Last Admin: 12/15/16 16:17 Dose: Not Given Arformoterol Tartrate (Brovana) 15 mcg INH BIDRT [facility] Piperacillin Sod/Tazobactam (Sod 3.375 gm/ Sodium Chloride) 50 mls @ 100 mls/ hr IV Q6H [facility] Last Admin: 12/15/16 11:03 Dose: 100 mls/hr Prednisone (Prednisone) 60 mg PO WITHBREAKFAST [facility] Stop: 12/17/16 08:01 Last Admin: 12/17/16 08:12 Dose: 60 mg - Exam Quality Assessment: supplemental oxygen ([facility] however requirements have reduced slightly here. ) General: alert, oriented, cooperative. No: no acute distress Neck: supple Lungs: Decreased breath sounds, Rhonchi (Mild rhonchus much improved since yesterday). No: Crackles Cardiovascular: Regular Rate, Regular Rhythm, No Murmurs Abdomen: bowel sounds present, soft, no tenderness, no distension Back Exam: No: CVA tenderness (L), CVA tenderness (R) Extremities: edema (Chronic disuse edema upper extremities, lower extremities) Peripheral Pulses: 2+: brachial (L), brachial (R) Skin: dry, rash (Yeasty appearance annular rash right intertigo folds. ) Neurological: normal speech Psy/Mental Status: alert, normal affect, normal mood - Problem List Review Problem List Initiated/Reviewed/Updated: Yes - My Orders Last 24 Hours: My Active Orders 12/16/16 12:30 Enoxaparin [Lovenox] 40 mg SUBCUT DAILY 12/17/16 08:39 CXR [Chest 2V] [CR] Routine 12/17/16 10:04 Discontinue Telemetry Monitoring [Cardiac Monitoring Discontinue] [RC] Click To Edit - Plan Plan:: This 66-year-old obese male who is a resident of a long[facility]term care [facility] was admitted yesterday due to pneumonia. He does have a history of COPD and is on chronic oxygenation. He stated he had some worsening breathing with cough. He also stated that he coughed quite a bit the last week or 2 a broad quite a bit of phlegm. He did have an elevated white count slightly will be worked up in the ED. Chest x-ray determined possible lung collapse which was not validated on subsequent CT. CT shows bilateral infiltrates without evidence of lung collapse also demonstrated Goiter. Undetermined if MRSA history. CODE STATUS, full code UPDATE TODAY--patient overall appearance much improved since admission, less cough, less oxygen requirements, more alert sitting up lucid, neutrophils normal Impression/plan Pneumonia, healthcare acquired, discontinue broad-spectrum Zosyn along with levofloxacin--resistance to respiratory floraquinolones on sensitivity report due to due to E. coli. bloood culture pending, change to Ceftiaxone now-- however patient improving clinically. Oral prednisone 60 mg x3 days. Stop date placed Chest x-ray reports quite dense consolidation left lower lobe--not quite consistent with overall appearance. Will need aggressive incentive spirometer and pulmonary toileting Chronic obstructive pulmonary disease, no acute exacerbation chronic home O2, duo nebs scheduled, is requiring less oxygen Renal insufficiency, Appears his creatinine baseline is around 1.4. Slightly elevated today at 1.6 OTHER CHRONIC MEDICAL CONDITIONS Diabetes mellitus Hypertension BPH Obesity--with significant diffuse edema Coronary artery disease
[2016-12-17] MEDS: Sodium Chloride 0.9% 1,000 ML IV SCH (11:20)
[2016-12-17] MEDS: cefTRIAXone 1 GM Vial IVPUSH SCH (11:30)
[2016-12-17] MEDS: Tamsulosin 0.4 MG Cap.ER PO SCH (20:43)
[2016-12-17] MEDS: Liraglutide (rDNA Origin) 0.6 MG/0.1 ML 3 ML Pen SUBCUT SCH (20:44)
[2016-12-17] MEDS: QUEtiapine 100 MG Tab PO SCH (22:53)
[2016-12-18] MEDS: Sodium Chloride 0.9% 1,000 ML IV SCH (02:12)
[2016-12-18] MEDS: Piperacillin/Tazobactam/Dext 50 ML IV SCH ×2 (05:38→11:09)
[2016-12-18] MEDS: Albuterol/Ipratropium 3.0-0.5 MG/3 ML Neb Soln NEB SCH ×2 (05:39→10:25)
[2016-12-18 06:46] VITALS: BP 172/77
[2016-12-18] MEDS: Carvedilol 12.5 MG Tab PO SCH (09:24)
[2016-12-18] MEDS: Furosemide 40 MG Tab PO SCH (09:26)
[2016-12-18] MEDS: Divalproex Sodium Delayed-Release 250 MG Tab.CR PO SCH ×2 (09:26→12:40)
[2016-12-18] MEDS: Insulin Detemir 100 Units/ML 3 ML Pen SUBCUT SCH (09:26)
[2016-12-18] MEDS: Finasteride 5 MG Tab PO SCH (09:27)
[2016-12-18] MEDS: Escitalopram 10 MG Tab PO SCH (09:27)
[2016-12-18] MEDS: Magnesium Oxide 500 MG Tab PO SCH (09:27)
[2016-12-18] MEDS: Acetaminophen 650 MG Tab.ER PO SCH (09:28)
[2016-12-18] MEDS: Enoxaparin 40 MG/0.4 ML Syringe SUBCUT SCH (09:28)
[2016-12-18] MEDS: Gabapentin 300 MG Cap PO SCH (09:37)
[2016-12-18] MEDS: cefTRIAXone 1 GM Vial IVPUSH SCH (11:09)
--- NOTE | 2016-12-21 08:18 | DISCH ---
FINAL DIAGNOSES: 1. Pneumonia, healthcare acquired. Escherichia coli, antibiotics switched to definitive therapy, negative blood cultures, significant consolidation of left lower lobes; however, clinically improving. 2. Chronic obstructive pulmonary disease, no acute exacerbation, he is on chronic home O2. 3. Renal insufficiency. 4. Goiter. Other chronic medical conditions include obesity, diabetes mellitus, hypertension, BPH, coronary artery disease. BRIEF HISTORY: This 66-year-old male who [facility] through the ED due to pneumonia. He had history of COPD, he was on chronic oxygen. He stated he had some worsening breathing and cough, and coughed quite a bit over the past week or two, brought up quite a bit of phlegm. He did have an elevated white count slightly in the ED. Chest x-ray initially determined possible lung collapse, left lower; however, subsequently CT did not validate that. Basically, CT shows bilateral infiltrates without evidence of lung collapse, also demonstrated goiter (incidental finding). HOSPITAL COURSE: Hospital course went well. He was initially started on broad- spectrum Zosyn along with levofloxacin; however, culture and sensitivity reports came back, resistant to the levofloxacin due to E coli. The patient was changed. Levofloxacin was discontinued and Rocephin was added and we continued with Zosyn. His white count improved, it was now normal at 7.9. He did not have any sputum. Other than early on admission, he did not require any increase in oxygen needs. He never became hemodynamically unstable. I did give him 60 mg of prednisone daily x3 days. His renal insufficiency, his creatinine baseline is around 1.4, went up mildly to 1.6. Chest x-ray did show consolidation of left lower lobe. He did do very well on his incentive spirometer. We did aggressive pulmonary toileting. He is a full code. Overall clinically, he did very well. He was well hydrated on discharge. DVT prophylaxis, he was given weight based Lovenox. PHYSICAL EXAMINATION: VITAL SIGNS: On discharge; temperature 96, blood pressure 170/77, and O2 sats 97% that is on 2 L, respiratory rate 20. Performed cough and deep breathing exercises. MEDICATIONS: 1. Rocephin 1 g every 24 hours intramuscularly every day x3 days, starting on 12/19/2016. 2. Ferrous sulfate decreased from t.i.d. to b.i.d. Continue on all other home meds. DISPOSITION: The patient was felt he was ready to go. He will continue with antibiotics IM for three days. The provider is to follow up on the goiter as this was incidental finding next week. RECOMMENDATIONS AT FOLLOWUP: Follow up on goiter, incidental finding. Nurses to report any worsening cough, any increase in oxygen needs, any increase in phlegm or shortness of breath. MEDICAL DECISION MAKIN minutes was spent on this discharge planning process, pharmacy consultation, and medication setup and adjustment. /[id number]/MODL MTDD
== END 2016-12-18 13:30 | DRG 195 ==
LOC: KA.ED 07:22 → KA.MS 09:36
PROVIDERS: ADMIT Physician Assistant Medical; ATTEND Nurse Practitioner Family
DX: J18.9 Pneumonia, unspecified organism (principal); R09.02 Hypoxemia; J44.9 Chronic obstructive pulmonary disease, unspecified; E11.22 Type 2 diabetes mellitus with diabetic chronic kidney disease; E04.2 Nontoxic multinodular goiter; I25.10 Atherosclerotic heart disease of native coronary artery without angina pectoris; I12.9 Hypertensive chronic kidney disease with stage 1 through stage 4 chronic kidney disease, or unspecified chronic kidney disease; N18.9 Chronic kidney disease, unspecified; E11.9 Type 2 diabetes mellitus without complications; Z79.84 Long term (current) use of oral hypoglycemic drugs; N40.0 Benign prostatic hyperplasia without lower urinary tract symptoms; E66.9 Obesity, unspecified; F32.9 Major depressive disorder, single episode, unspecified; Z87.891 Personal history of nicotine dependence; Z79.02 Long term (current) use of antithrombotics/antiplatelets; Z79.82 Long term (current) use of aspirin; Z99.81 Dependence on supplemental oxygen; Z79.899 Other long term (current) drug therapy; Z88.8 Allergy status to other drugs, medicaments and biological substances; B96.20 Unspecified Escherichia coli [E. coli] as the cause of diseases classified elsewhere
CPT/HCPCS: 36415; 71010; 71020; 71250; 80048; 80053; 82550; 82553; 82962; 83880; 84484; 85025; 87040; 87070; 87077; 87186; 87205; 93005; 94640; 99285; A9270-GY; J0696; J1650; J1815-GY; J1956; J2543; J3490; J7030; J7050

== ENCOUNTER 2017-01-10 09:50 | Inpatient (IN) | payer MEDICARE, MEDICAID ==
[2017-01-10] MEDS ORDERED: Sodium Chloride 0.9% 5 ML Syringe FLUSH PRN ×2 (10:00→11:18)
[2017-01-10] MEDS ORDERED: Albuterol/Ipratropium 3.0-0.5 MG/3 ML Neb Soln NEB ONE (10:09)
--- NOTE | 2017-01-10 10:09 | EDM.PDOC ---
ED HPI GENERAL MEDICAL PROBLEM - General Chief Complaint: Respiratory Problem Stated Complaint: LOW BS...LOW O2 Time Seen by Provider: 01/10/17 10:00 Source of Information: Reports: Patient History Limitations: Reports: No Limitations - History of Present Illness INITIAL COMMENTS - FREE TEXT/NARRATIVE: 66 YO WM with PMH of COPD [place] with [place]. Pt requiring 4L of oxygen to maintain his SaO2 at 98%. Pt was recently treated for pneumonia and just finished his course of bactrim. Pt reports productive cough with greenish sputum. Pt denies any chest pain, denies nausea/vomiting, denies fever/chills. Pt states he felt fine this am but became short of breath while ambulating to the restroom. Onset: Today Onset Date: 01/10/17 Onset Time: 07:00 Duration: Day(s): (1) Location: Reports: Generalized Severity: Mild Improves with: Reports: Rest Worsens with: Reports: Movement Context: Reports: Activity Associated Symptoms: Reports: Cough, cough w sputum, Shortness of Breath. Denies: Confusion, Chest Pain, Diaphoresis, Fever/Chills, Headaches, Loss of Appetite, Nausea/Vomiting, Rash, Syncope, Weakness - Related Data Allergies Allergy/AdvReac Type Severity Reaction Status Date / Time nefazodone Allergy Cannot Verified 01/10/17 10:31 Remember trazodone Allergy Cannot Verified 01/10/17 10:31 Remember Home Meds: Home Meds Acetaminophen [Tylenol Arthritis] 1 tab PO BID@0800,199907/22/16 [History] Acetaminophen [Tylenol] 650 mg PO Q4H PRN 07/22/16 [History] Aspirin [Halfprin] 1 tab PO DAILY@1200 07/22/16 [History] Bisacodyl [Dulcolax] 10 mg RECTAL BEDTIME PRN 07/22/16 [History] Carvedilol 18.75 mg PO BID@0800,199907/22/16 [History] Clopidogrel [Plavix] 75 mg PO DAILY 07/22/16 [History] Escitalopram [Lexapro] 20 mg PO DAILY@0800 07/22/16 [History] Finasteride 5 mg PO DAILY@0800 07/22/16 [History] Fluticasone Propionate [Flonase] 2 spray NASBOTH DAILY PRN 07/22/16 [History] Gabapentin [Neurontin] 300 mg PO BID@0800,2000 07/22/16 [History] Magnesium Oxide 400 mg PO BID@0800,1800 07/22/16 [History] Multivitamin [Men's Multi-Vitamin] 1 tab PO DAILY@1200 07/22/16 [History] QUEtiapine Fumarate [Seroquel] 500 mg PO BEDTIME 07/22/16 [History] Sennosides/Docusate Sodium [Senna S Tablet] 2 tab PO DAILY@1800 07/22/16 [ History] Sodium Chloride [Saline Nasal [place]] 1 spray NASBOTH Q1H PRN 07/22/16 [History] Tamsulosin [Flomax] 0.4 mg PO BEDTIME 07/22/16 [History] atorvaSTATin [Lipitor] 40 mg PO BEDTIME 07/22/16 [History] Aquaphor Advanced Therapy Ointment 1 applic TOP BID PRN 12/15/16 [History] Arformoterol [Brovana] 2 ml INH BID@1000,2200 12/15/16 [History] Budesonide [Pulmicort] 2 ml INH DAILY PRN 12/15/16 [History] Budesonide [Pulmicort] 2 ml INH DAILY@0600 12/15/16 [History] Cholecalciferol (Vitamin D3) [Vitamin D3] 2,000 unit PO DAILY@1200 12/15/16 [ History] Divalproex Sodium 250 mg PO QID@08,12,16,20 12/15/16 [History] Furosemide 40 mg PO DAILY@0800 12/15/16 [History] Insulin Glarg,Human.Rec.Analog [Lantus] 85 unit SQ BID@0800,199912/15/16 [ History] Insulin Glarg,Human.Rec.Analog [Lantus] 85 units SQ BID@0800,199912/15/16 [ History] Liraglutide [Victoza] 0.6 mg SQ DAILY@199912/15/16 [History] Non-Formulary Medication [NF Drug] 1 applic TOP BID PRN 12/15/16 [History] Nystatin 1 applic TOP DAILY PRN 12/15/16 [History] Nystatin [Nystop] 1 applic TOP DAILY PRN 12/15/16 [History] Selenium Sulfide/Aloe Vera [Selsun Blue Moist 1% Shampoo] 1 applic TOP ASDIRECTED PRN 12/15/16 [History] Selenium Sulfide/Aloe Vera [Selsun Blue Moist 1% Shampoo] 1 applic TOP WEEKLY [History] metFORMIN HCl [Metformin HCl ER] 500 mg PO WITHBREAKFAST 12/15/16 [History] Ferrous Sulfate 325 mg PO BIDMEALS #90 12/18/16 [Rx] Magnesium Hydroxide [Milk of Magnesia] 30 ml PO DAILY PRN 01/10/17 [History] Past Medical History HEENT History: Reports: Cataract Cardiovascular History: Reports: High Cholesterol, Hypertension Respiratory History: Reports: COPD Other Respiratory History: Emphysema Gastrointestinal History: Reports: Other (See Below) Other Gastrointestinal History: Other diseases of the digestive system Genitourinary History: Reports: Chronic Renal Insuffiency Musculoskeletal History: Reports: Back Pain, Chronic, Neck Pain, Chronic, Osteoarthritis Neurological History: Reports: Other (See Below) Other Neuro History: confusion Psychiatric History: Reports: Addiction, Depression Endocrine/Metabolic History: Reports: Diabetes, Type II, Other (See Below) Other Endocrine/Metabolic History: noontoxic mutinodular goiter Dermatologic History: Reports: Decubitus Ulcer - Infectious Disease History Infectious Disease History: Reports: Other (See Below) Other Infectious Disease History: unknown Social & Family History - Family History Family Medical History: Noncontributory HEENT: Reports: Cataract, Macular Degeneration Cardiac: Reports: [place] (Father with myocardial infarction) Respiratory: Reports: None GI: Reports: None : Reports: Renal Disease/Insufficiency, Other (See Below) Musculoskeletal: Reports: None Neurological: Reports: None Psychiatric: Reports: None Endocrine/Metabolic: Reports: None Hematologic: Reports: None Immunologic: Reports: None Dermatologic: Reports: None Oncologic: Reports: None - Tobacco Use Smoking Status *Q: Former Smoker Used Tobacco, but Quit: Yes Month Tobacco Last Used: 2015 - Caffeine Use Caffeine Use: Reports: Soda Other Caffeine Use: unknown - Recreational Drug Use Recreational Drug Use: No ED ROS GENERAL - Review of Systems Review Of Systems: See Below Constitutional: Reports: No Symptoms HEENT: Reports: No Symptoms Respiratory: Reports: Shortness of Breath, Cough, Sputum Cardiovascular: Reports: Edema Endocrine: Reports: No Symptoms GI/Abdominal: Reports: No Symptoms : Reports: No Symptoms Musculoskeletal: Reports: No Symptoms Skin: Reports: No Symptoms Neurological: Reports: No Symptoms Psychiatric: Reports: No Symptoms Hematologic/Lymphatic: Reports: No Symptoms Immunologic: Reports: No Symptoms ED EXAM, GENERAL - Physical Exam Exam: See Below Exam Limited By: No Limitations General Appearance: Alert, WD/WN, No Apparent Distress Nose: Normal Inspection, Normal Mucosa, No Blood Throat/Mouth: Normal Inspection, Normal Lips, Normal Teeth, Normal Gums, Normal Oropharynx, Normal Voice, No Airway Compromise Head: Atraumatic, Normocephalic Neck: Normal Inspection, Supple, Non-Tender, Full Range of Motion Respiratory/Chest: No Respiratory Distress, No Accessory Muscle Use, Chest Non- Tender, Rhonchi, Wheezing Cardiovascular: Normal Peripheral Pulses, Regular Rate, Rhythm, No Edema, No Gallop, No JVD, No Murmur, No Rub GI/Abdominal: Normal Bowel Sounds, Soft, Non-Tender, No Organomegaly, No Distention, No Abnormal Bruit, No Mass Back Exam: Normal Inspection, Full Range of Motion, NT Extremities: Normal Inspection, Normal Range of Motion, Non-Tender, Normal Capillary Refill, No Pedal Edema Neurological: Alert, Oriented, CN II-XII Intact, Normal Cognition, Normal Gait, Normal Reflexes, No Motor/Sensory Deficits Psychiatric: Normal Affect, Normal Mood Skin Exam: Warm, Dry, Intact, Normal Color, No Rash Lymphatic: No Adenopathy EKG INTERPRETATION EKG Date: 01/10/17 Time: 10:26 Rhythm: NSR Rate (beats/min): 75 [place]: normal P-wave: present QRS: normal ST-T: normal QT: normal Comparison: NA - no prior EKG Course - Vital Signs Last Recorded V/S: Last Vital Signs Temp 36.3 C 01/10/17 10:13 Pulse 88 01/10/17 10:13 Resp 22 H 01/10/17 10:13 BP 172/47 H 01/10/17 10:13 Pulse Ox 89 L 01/10/17 10:13 - Orders/Labs/Meds Orders: Active Orders 24 hr Category Date Time Status EKG Documentation Completion [RC] ASDIRECTED Care 01/10/17 10:01 Ordered Peripheral IV Care [RC] . DIRECTED Care 01/10/17 10:01 Ordered RT Aerosol Therapy [RC] ASDIRECTED Care 01/10/17 10:09 Ordered Chest 1V Frontal [CR] Stat Exams 01/10/17 10:00 Ordered B-TYPE NATRIURETIC PEPTIDE,BNP [CHEM] Stat Lab 01/10/17 10:01 Ordered CK W CKMB [CHEM] Stat Lab 01/10/17 10:00 Ordered COMPREHENSIVE METABOLIC PN,CMP [CHEM] Stat Lab 01/10/17 10:00 Ordered CULTURE SPUTUM + SMEAR [RM] Stat Lab 01/10/17 10:28 Received TROPONIN I [CHEM] Stat Lab 01/10/17 10:00 Ordered Sodium Chloride 0.9% [Syrex Flush] Med 01/10/17 10:00 Ordered 5 ml FLUSH Q8HR PRN Peripheral IV Insertion Adult [OM.PC] Routine Oth 01/10/17 10:00 Ordered EKG 12 Lead [EK] Routine Ther 01/10/17 10:00 Ordered Medication Orders Sodium Chloride (Syrex Flush) 5 ml FLUSH Q8HR PRN PRN Reason: Keep Vein Open Labs: Laboratory Tests 01/10/17 01/10/17 01/10/17 Range/Units 10:23 10:23 10:23 WBC 14.7 H (5.0-10.0) 10^3/uL RBC 2.97 L (4.50-6.00) 10^6/uL Hgb 9.0 L (13.0-17.0) g/dL Hct 27.1 L (40.0-52.0) % MCV 91.3 (82.0-92.0) fL MCH 30.5 (27.0-31.0) pg MCHC 33.4 (32.0-36.0) g/dL RDW 15.6 H (11.5-14.5) % Plt Count 274 (150-300) 10^3/uL MPV 6.3 L (7.4-10.4) fL Neut % (Auto) 69.6 (50.0-70.0) % Lymph % (Auto) 10.2 L (20.0-40.0) % [place] % (Auto) 17.4 H (2.0-8.0) % Eos % (Auto) 2.5 (1.0-3.0) % Baso % (Auto) 0.3 (0.0-1.0) % Neut # (Auto) 10.2 H (2.5-7.0) 10^3/uL Lymph # (Auto) 1.5 (1.0-4.0) 10^3/uL [place] # (Auto) 2.6 H (0.1-0.8) 10^3/uL Eos # (Auto) 0.4 H (0.1-0.3) 10^3/uL Baso # (Auto) 0.0 (0.0-0.1) 10^3/uL PT 11.0 (8.9-11.4) SEC INR 1.1 (0.9-1.1) APTT 25.4 (20.8-31.2) SEC Troponin I 0.02 (0.00-0.08) ng/mL B-Natriuretic Peptide 208 H (0-100) pg/mL Meds: Medications Generic Name Dose Route Start Last Admin Trade Name Freq PRN Reason Stop Dose Admin Sodium Chloride 5 ml 01/10/17 10:00 Syrex Flush FLUSH Q8HR PRN Keep Vein Open Discontinued Medications Generic Name Dose Route Start Last Admin Trade Name Freq PRN Reason Stop Dose Admin Albuterol/Ipratropium 3 ml 01/10/17 10:09 01/10/17 10:13 Duoneb 3.0-0.5 Mg/3 Ml NEB 01/10/17 10:10 3 ml ONETIME ONE Administration - Radiology Interpretation Free Text/Narrative:: CXR- left hemithorax opacification likely a combination of pleural fluid, atelectasis and infiltrate Departure - Departure Time of Disposition: 11:16 Disposition: Admitted As Inpatient 64 Condition: fair Clinical Impression: Hypoxemia Pneumonia Qualifiers: Pneumonia type: due to unspecified organism Laterality: left Lung location: lower lobe of lung Qualified Code(s): J18.1 - Lobar pneumonia, unspecified organism - Discharge Information - My Orders Last 24 Hours: My Active Orders 01/10/17 10:00 Chest 1V Frontal [CR] Stat CK W CKMB [CHEM] Stat COMPREHENSIVE METABOLIC PN,CMP [CHEM] Stat TROPONIN I [CHEM] Stat Sodium Chloride 0.9% [Syrex Flush] 5 ml FLUSH Q8HR PRN Peripheral IV Insertion Adult [OM.PC] Routine EKG 12 Lead [EK] Routine 01/10/17 10:01 EKG Documentation Completion [RC] ASDIRECTED Peripheral IV Care [RC] . DIRECTED B-TYPE NATRIURETIC PEPTIDE,BNP [CHEM] Stat 01/10/17 10:09 RT Aerosol Therapy [RC] ASDIRECTED 01/10/17 10:28 CULTURE SPUTUM + SMEAR [RM] Stat - Assessment/Plan Last 24 Hours: My Active Orders 01/10/17 10:00 Chest 1V Frontal [CR] Stat CK W CKMB [CHEM] Stat COMPREHENSIVE METABOLIC PN,CMP [CHEM] Stat TROPONIN I [CHEM] Stat Sodium Chloride 0.9% [Syrex Flush] 5 ml FLUSH Q8HR PRN Peripheral IV Insertion Adult [OM.PC] Routine EKG 12 Lead [EK] Routine 01/10/17 10:01 EKG Documentation Completion [RC] ASDIRECTED Peripheral IV Care [RC] . DIRECTED B-TYPE NATRIURETIC PEPTIDE,BNP [CHEM] Stat 01/10/17 10:09 RT Aerosol Therapy [RC] ASDIRECTED 01/10/17 10:28 CULTURE SPUTUM + SMEAR [RM] Stat Assessment:: 1. usp acquired pneumonia 2. hypoxia Plan: 1. admit to Dr Marylou Irvin 2. levaquin 500mg IV and Vancomycin 1g IV QD 3. duonebs Q4 and PRN 4. blood and sputum cultures 5. supportive care
[2017-01-10] MEDS ORDERED: Albuterol/Ipratropium 3.0-0.5 MG/3 ML Neb Soln NEB PRN (11:18)
[2017-01-10] MEDS ORDERED: Acetaminophen 325 MG Tab PO PRN ×2 (11:18→12:57)
--- NOTE | 2017-01-10 12:02 | PCM.HP ---
H&P History of Present Illness - General Date of Service: 01/10/17 Admit Problem/Dx: Admission Diagnosis/Problem Admission Diagnosis/Problem Pneumonia Patient is a 66-year-old white gentleman from the local shelter who was brought in by ambulance for further evaluation and treatment secondary to increased shortness of breath, low O2 sats. Patient has had a history of recent pneumonia-just finished Bactrim. Patient reports he was feeling pretty good yesterday and even earlier today and then suddenly got short of breath and his shortness of breath progressed. He reports he has had a cough productive of greenish sputum. Patient denies any fever, chills, chest pain, abdominal pain, nausea, vomiting, diarrhea, constipation detention reported that patient's shortness of breath increased and he could not keep his oxygen saturation above 80% on 4 L of oxygen per nasal cannula. detention called me and we transported him to the emergency room for further evaluation and treatment. Patient was evaluated in the emergency room-workup, chest x-ray done-noted to have pneumonia Patient will be admitted for further evaluation treatment Source of Information: Patient, Custodial Records, Other (Emergency room records) History Limitations: Reports: No Limitations - History of Present Illness Initial Comments - Free Text/Narative: As above Onset of Symptoms: Reports: Today, Sudden Duration of Symptoms: Reports: Hour(s): - Related Data Allergies/Adverse Reactions: Allergies Allergy/AdvReac Type Severity Reaction Status Date / Time nefazodone Allergy Cannot Verified 01/10/17 10:31 Remember trazodone Allergy Cannot Verified 01/10/17 10:31 Remember Home Medications: Home Meds Acetaminophen [Tylenol Arthritis] 1 tab PO BID@08,199907/22/16 [History] Acetaminophen [Tylenol] 650 mg PO Q4H PRN 07/22/16 [History] Aspirin [Halfprin] 1 tab PO DAILY@1200 07/22/16 [History] Bisacodyl [Dulcolax] 10 mg RECTAL BEDTIME PRN 07/22/16 [History] Carvedilol 18.75 mg PO BID@799,199907/22/16 [History] Clopidogrel [Plavix] 75 mg PO DAILY 07/22/16 [History] Escitalopram [Lexapro] 20 mg PO DAILY@0800 07/22/16 [History] Finasteride 5 mg PO DAILY@0800 07/22/16 [History] Fluticasone Propionate [Flonase] 2 spray NASBOTH DAILY PRN 07/22/16 [History] Gabapentin [Neurontin] 300 mg PO BID@0800,2000 07/22/16 [History] Magnesium Oxide 400 mg PO BID@0800,1800 07/22/16 [History] Multivitamin [Men's Multi-Vitamin] 1 tab PO DAILY@1200 07/22/16 [History] QUEtiapine Fumarate [Seroquel] 500 mg PO BEDTIME 07/22/16 [History] Sennosides/Docusate Sodium [Senna S Tablet] 2 tab PO DAILY@1800 07/22/16 [ History] Sodium Chloride [Saline Nasal [place]] 1 spray NASBOTH Q1H PRN 07/22/16 [History] Tamsulosin [Flomax] 0.4 mg PO BEDTIME 07/22/16 [History] atorvaSTATin [Lipitor] 40 mg PO BEDTIME 07/22/16 [History] Aquaphor Advanced Therapy Ointment 1 applic TOP BID PRN 12/15/16 [History] Arformoterol [Brovana] 2 ml INH BID@1000,2200 12/15/16 [History] Budesonide [Pulmicort] 2 ml INH DAILY PRN 12/15/16 [History] Budesonide [Pulmicort] 2 ml INH DAILY@0600 12/15/16 [History] Cholecalciferol (Vitamin D3) [Vitamin D3] 2,000 unit PO DAILY@1200 12/15/16 [ History] Divalproex Sodium 250 mg PO QID@08,12,16,20 12/15/16 [History] Furosemide 40 mg PO DAILY@0800 12/15/16 [History] Insulin Glarg,Human.Rec.Analog [Lantus] 70 units SQ 199912/15/16 [History] Insulin Glarg,Human.Rec.Analog [Lantus] 85 unit SQ 0812/15/16 [History] Liraglutide [Victoza] 0.6 mg SQ DAILY@199912/15/16 [History] Non-Formulary Medication [NF Drug] 1 applic TOP BID PRN 12/15/16 [History] Nystatin 1 applic TOP DAILY PRN 12/15/16 [History] Nystatin [Nystop] 1 applic TOP DAILY PRN 12/15/16 [History] Selenium Sulfide/Aloe Vera [Selsun Blue Moist 1% Shampoo] 1 applic TOP ASDIRECTED PRN 12/15/16 [History] Selenium Sulfide/Aloe Vera [Selsun Blue Moist 1% Shampoo] 1 applic TOP WEEKLY [History] metFORMIN HCl [Metformin HCl ER] 500 mg PO WITHBREAKFAST 12/15/16 [History] Ferrous Sulfate 325 mg PO BIDMEALS #90 12/18/16 [Rx] Magnesium Hydroxide [Milk of Magnesia] 30 ml PO DAILY PRN 01/10/17 [History] Past Medical History HEENT History: Reports: Cataract Cardiovascular History: Reports: High Cholesterol, Hypertension Respiratory History: Reports: COPD Other Respiratory History: Emphysema Gastrointestinal History: Reports: Other (See Below) Other Gastrointestinal History: Other diseases of the digestive system Genitourinary History: Reports: Chronic Renal Insuffiency Other Genitourinary History: left nephrectomy 1999 Musculoskeletal History: Reports: Back Pain, Chronic, Neck Pain, Chronic, Osteoarthritis Neurological History: Reports: Other (See Below) Other Neuro History: confusion Psychiatric History: Reports: Addiction, Depression Endocrine/Metabolic History: Reports: Diabetes, Type II, Other (See Below) Other Endocrine/Metabolic History: noontoxic mutinodular goiter Oncologic (Cancer) History: Reports: Renal Dermatologic History: Reports: Decubitus Ulcer - Infectious Disease History Infectious Disease History: Reports: Other (See Below) Other Infectious Disease History: unknown - Past Surgical History HEENT Surgical History: Reports: Cataract Surgery Cardiovascular Surgical History: Reports: None Respiratory Surgical History: Reports: None GI Surgical History: Reports: None Oncologic Surgical History: Reports: Other (See Below) Other Oncologic Surgeries/Procedures: left nephrectomy (10 radiation treatments ) 1999 Social & Family History - Family History Family Medical History: Noncontributory HEENT: Reports: Cataract, Macular Degeneration Cardiac: Reports: [place] (Father with myocardial infarction) Respiratory: Reports: None GI: Reports: None : Reports: Renal Disease/Insufficiency, Other (See Below) Musculoskeletal: Reports: None Neurological: Reports: None Psychiatric: Reports: None Endocrine/Metabolic: Reports: None Hematologic: Reports: None Immunologic: Reports: None Dermatologic: Reports: None Oncologic: Reports: None - Tobacco Use Smoking Status *Q: Former Smoker Years of Tobacco use: 30 Packs/Tins Daily: 2 Used Tobacco, but Quit: Yes Month Tobacco Last Used: 2016 - Caffeine Use Caffeine Use: Reports: Soda Other Caffeine Use: unknown - Recreational Drug Use Recreational Drug Use: No H&P Review of Systems - Review of Systems: Review Of Systems: See Below General: Reports: Malaise, Weakness, Fatigue, Weight Gain. Denies: Fever, Chills, Diaphoresis, Decreased Appetite HEENT: Reports: No Symptoms Pulmonary: Reports: Shortness of Breath, Wheezing, Cough, Sputum. Denies: Pleuritic Chest Pain, Hemoptysis Cardiovascular: Reports: Dyspnea on Exertion, Edema (Chronic bilateral lower extremity marked). Denies: Chest Pain, Palpitations, Lightheadedness, Syncope Gastrointestinal: Reports: No Symptoms. Denies: Abdominal Pain, Diarrhea, Decreased Appetite, Nausea, Vomiting Genitourinary: Reports: No Symptoms Musculoskeletal: Reports: Neck Pain (Chronic), Back Pain (Chronic) Skin: Reports: Other (Bilateral lower extremity profound edema with secondary lower extremity discoloration) Psychiatric: Reports: No Symptoms Neurological: Reports: No Symptoms, Confusion (Some confusion reported by shelter staff) Exam - Exam Exam: See Below - Vital Signs Vital Signs: Last Vital Signs Temp 97.3 F 01/10/17 10:13 Pulse 88 01/10/17 10:13 Resp 22 H 01/10/17 10:13 BP 172/47 H 01/10/17 10:13 Pulse Ox 89 L 01/10/17 10:13 Weight: 268 lb 4.8 oz - Exam Quality Assessment: Supplemental Oxygen General: Alert, Oriented, Cooperative, Mild Distress, Other (Very obese gentleman sitting in bed with head of bed increase 30, pale, significant weakness, O2 on via mask) HEENT: Conjunctiva Clear, EACs Clear, EOMI, Hearing Intact, Mucosa Moist & [place] , Posterior Pharynx Clear, Pupils Equal, Pupils Reactive, TMs Clear, PERRLA Neck: Supple, Trachea Midline. No: Lymphadenopathy, JVD, Thyromegaly Lungs: Decreased Breath Sounds, Crackles, Wheezing Cardiovascular: Regular Rate, Regular Rhythm, Systolic Murmur (1/6 systolic) Abdomen: Normal Bowel Sounds, Soft, Other (Very obese). No: Organomegaly, Peritoneal Signs, Distention, Guarding, Rigidity, Rebound, Tenderness Extremities: Edema, Other (Marked bilateral lower extremity edema from the knee down with brownish discoloration and some scaling, on the right anterior lateral leg he has some scabbed lesions with moderate amount of this induration but no drainage) Skin: Wound, Other (As above) Neurological: Cranial Nerves Intact (Except somewhat hard of hearing) Psychiatric: Alert, Other (Patient can be somewhat challenging/demanding) - Patient Data Result Diagrams: 01/10/17 10:23 01/10/17 10:23 *Q Meaningful Use (ADM) - VTE *Q VTE Criteria *Q: - Stroke *Q Stroke Criteria *Q: - AMI *Q AMI Criteria *Q: Problem List Initiated/Reviewed/Updated: Yes Orders Last 24hrs: Active Orders 24 hr Category Date Time Status Patient Status Manage Transfer [TRANSFER] Routine ADT 01/10/17 11:17 Ordered Patient Status [ADT] Routine ADT 01/10/17 11:18 Ordered Bedrest Bathroom Privileges [RC] ASDIRECTED Care 01/10/17 11:18 Active Oxygen Therapy [RC] PRN Care 01/10/17 11:18 Active Peripheral IV Care [RC] . DIRECTED Care 01/10/17 11:20 Active Pulse Oximetry [RC] CONTINUOUS Care 01/10/17 11:19 Active RT Aerosol Therapy [RC] ASDIRECTED Care 01/10/17 11:20 Active VTE/DVT Education [RC] PER UNIT ROUTINE Care 01/10/17 11:18 Active Vital Signs [RC] Q4H Care 01/10/17 11:18 Active 2 Gram Sodium Diet [DIET] Diet 01/10/17 Lunch Active BASIC METABOLIC PANEL,BMP [CHEM] AM Lab 01/11/17 05:11 Ordered CBC WITH AUTO DIFF [HEME] AM Lab 01/11/17 05:11 Ordered CULTURE BLOOD [BC] Stat Lab 01/10/17 11:20 Ordered CULTURE BLOOD [BC] Stat Lab 01/10/17 11:20 Ordered CULTURE SPUTUM + SMEAR [RM] Stat Lab 01/10/17 11:18 Uncollected Acetaminophen [Tylenol] Med 01/10/17 11:18 Active 650 mg PO Q4H PRN Albuterol/Ipratropium [DuoNeb 3.0-0.5 MG/3 ML] Med 01/10/17 11:18 Active 3 ml NEB Q4H PRN Levofloxacin/Dextrose 5%-Water [Levaquin in D5W 500 MG/ Med 01/10/17 11:30 Active 100 ML] 500 mg Premix Bag 1 bag IV Q24H Sodium Chloride 0.9% [Syrex Flush] Med 01/10/17 11:18 Active 5 ml FLUSH Q8HR PRN Vancomycin 1 gm Med 01/10/17 11:20 Active Sodium Chloride 0.9% [Normal Saline] 250 ml IV ONETIME Vancomycin Pharmacy to Dose [Pharmacy to Dose - Med 01/10/17 11:30 Active Vancomycin] 1 dose .XX ASDIRECTED Blood Culture x2 Reflex Set [OM.PC] Stat Oth 01/10/17 11:18 Ordered Peripheral IV Insertion Adult [OM.PC] Routine Oth 01/10/17 11:18 Ordered Resuscitation Status Routine Resus Stat 01/10/17 11:18 Ordered Medication Orders Acetaminophen (Tylenol) 650 mg PO Q4H PRN PRN Reason: Pain (Mild 1-3)/fever Albuterol/Ipratropium (Duoneb 3.0-0.5 Mg/3 Ml) 3 ml NEB Q4H PRN PRN Reason: Shortness Of Breath/wheezing Levofloxacin/Dextrose 500 mg/ (Premix) 100 mls @ 100 mls/hr IV Q24H LAN Vancomycin HCl 1 gm/ Sodium (Chloride) 250 mls @ 167 mls/hr IV ONETIME ONE Stop: 01/10/17 12:49 Sodium Chloride (Syrex Flush) 5 ml FLUSH Q8HR PRN PRN Reason: Keep Vein Open Sodium Chloride (Syrex Flush) 5 ml FLUSH Q8HR PRN PRN Reason: Keep Vein Open Vancomycin HCl (Pharmacy To Dose - Vancomycin) 1 dose .XX ASDIRECTED [facility] Assessment/Plan Comment:: Assessment: Pneumonia-shelter acquired Hypoxia/respiratory failure Leukocytosis secondary to above COPD-acute on chronic Right lower extremity cellulitis Bilateral profound lower extremity edema Adult-onset diabetes mellitus type 2 with insolent supplementation Profound obesity detention patient Other diagnoses: Anemia History of recent pneumonia Hyperlipidemia Hypertension Chronic kidney disease Chronic neck/back pain Depression BPH Osteoarthritis Complex patient Plan: Admit to inpatient care for further evaluation treatment Monitor general status very closely, vital signs, intake and output, general condition Obtain full cultures Cover with broad-spectrum IV antibiotics-IV Levaquin and IV vancomycin-health care acquired infection Sharla [place], incentive spirometry Talked with patient he agrees with this evaluation treatment plan-see orders for further details
[2017-01-10] MEDS ORDERED: SELENIUM SULFIDE TOP PRN (12:57)
[2017-01-10] MEDS ORDERED: NYSTATIN TOP PRN (12:57)
[2017-01-10] MEDS ORDERED: Sodium Chloride 0.65% Nasal Spray 45 ML Bottle NASBOTH PRN (12:57)
[2017-01-10] MEDS ORDERED: [UNRECOGNIZED DRUG - OTHER] TOP PRN (12:57)
[2017-01-10] MEDS ORDERED: Nystatin Topical Powder 15 GM Bottle TOP PRN (12:57)
[2017-01-10] MEDS ORDERED: Bisacodyl 10 MG Supp RECTAL PRN (12:57)
[2017-01-10] MEDS ORDERED: Fluticasone Propionate Nasal Spray 16 GM Bottle NASBOTH PRN (12:57)
[2017-01-10] MEDS ORDERED: ALOE VERA TOP PRN (12:57)
[2017-01-10] MEDS ORDERED: Budesonide 0.5 MG/2 ML Neb Susp INH PRN (12:57)
[2017-01-10] MEDS ORDERED: ALOE VERA TOP SCH (13:00)
[2017-01-10] MEDS ORDERED: SELENIUM SULFIDE TOP SCH (13:00)
[2017-01-10] MEDS: Levofloxacin/Dextrose 5%-Water 500 MG in Premix Bag 1 BAG IV SCH (14:09)
[2017-01-10] MEDS: Divalproex Sodium Delayed-Release 250 MG Tab.CR PO SCH ×2 (15:48→21:26)
[2017-01-10] MEDS ORDERED: LORazepam 2 MG/ML MDV IVPUSH ONE (15:57)
[2017-01-10] MEDS: Ferrous Sulfate 325 MG Tab PO SCH (17:52)
[2017-01-10] MEDS: Carvedilol 6.25 MG Tab PO SCH (19:55)
[2017-01-10] MEDS: Acetaminophen 650 MG Tab.ER PO SCH (20:00)
[2017-01-10] MEDS: Budesonide 0.5 MG/2 ML Neb Susp INH SCH (20:01)
[2017-01-10] MEDS: Gabapentin 300 MG Cap PO SCH (20:01)
[2017-01-10] MEDS ORDERED: Insulin Aspart 100 Units/ML 3 ML Pen SUBCUT SCH (21:00)
[2017-01-10] MEDS: Tamsulosin 0.4 MG Cap.ER PO SCH (21:25)
[2017-01-10] MEDS: atorvaSTATin 40 MG Tab PO SCH (21:25)
[2017-01-10] MEDS: Arformoterol 15 MCG/2 ML Neb Soln INH SCH (21:25)
[2017-01-10] MEDS: QUEtiapine 100 MG Tab PO SCH (21:40)
[2017-01-10] MEDS: Insulin Detemir 100 Units/ML 3 ML Pen SUBCUT SCH (23:20)
[2017-01-11] MEDS: Liraglutide (rDNA Origin) 0.6 MG/0.1 ML 3 ML Pen SUBCUT SCH ×2 (00:10→20:01)
[2017-01-11] MEDS ORDERED: Budesonide 0.5 MG/2 ML Neb Susp INH SCH (06:00)
[2017-01-11] MEDS ORDERED: metFORMIN 500 MG Tab.ER PO SCH (08:00)
[2017-01-11] MEDS ORDERED: Insulin Detemir 100 Units/ML 3 ML Pen SUBCUT ONE (08:17)
[2017-01-11] MEDS: Carvedilol 6.25 MG Tab PO SCH ×2 (08:23→20:03)
[2017-01-11] MEDS: Finasteride 5 MG Tab PO SCH (08:24)
[2017-01-11] MEDS: Insulin Detemir 100 Units/ML 3 ML Pen SUBCUT SCH ×2 (08:24→20:37)
[2017-01-11] MEDS: Gabapentin 300 MG Cap PO SCH ×2 (08:24→20:04)
[2017-01-11] MEDS: Escitalopram 10 MG Tab PO SCH (08:24)
[2017-01-11] MEDS: Furosemide 40 MG Tab PO SCH (08:24)
[2017-01-11] MEDS: Divalproex Sodium Delayed-Release 250 MG Tab.CR PO SCH ×4 (08:24→20:04)
[2017-01-11] MEDS: Acetaminophen 650 MG Tab.ER PO SCH ×2 (08:25→20:04)
[2017-01-11] MEDS: Ferrous Sulfate 325 MG Tab PO SCH ×2 (08:25→17:00)
[2017-01-11] MEDS: Budesonide 0.5 MG/2 ML Neb Susp INH SCH ×2 (08:42→19:56)
[2017-01-11] MEDS ORDERED: Clopidogrel 75 MG Tab PO SCH (09:00)
[2017-01-11] MEDS ORDERED: 50% Dextrose in Water 50 ML Syringe IVPUSH ONE (09:30)
[2017-01-11] MEDS ORDERED: Nitroglycerin 0.4 MG Tab.SL SL PRN (09:32)
[2017-01-11] MEDS ORDERED: EPINEPHrine 1:10,000 1 MG/10 ML Syringe IVPUSH PRN (09:32)
[2017-01-11] MEDS ORDERED: Lidocaine 2% 100 MG/5 ML Syringe IVPUSH PRN (09:32)
[2017-01-11] MEDS ORDERED: Atropine 0.1 MG/ML 10 ML Syringe IVPUSH PRN (09:32)
[2017-01-11] MEDS: Arformoterol 15 MCG/2 ML Neb Soln INH SCH ×2 (09:36→22:10)
[2017-01-11] MEDS: Multivitamins with Minerals/Iron/Folic Acid/Lycopene Tab PO SCH (12:23)
[2017-01-11] MEDS: Cholecalciferol (Vitamin D3) 1,000 Unit Tab PO SCH (12:23)
[2017-01-11] MEDS: Aspirin 81 MG Tab.EC PO SCH (12:23)
[2017-01-11] MEDS: Levofloxacin/Dextrose 5%-Water 50 ML IV SCH (12:25)
[2017-01-11] MEDS: Levofloxacin/Dextrose 5%-Water 500 MG in Premix Bag 1 BAG IV SCH (12:29)
[2017-01-11] MEDS: ALPRAZolam 0.25 MG Tab PO PRN ×2 (12:34→17:59)
--- NOTE | 2017-01-11 12:35 | PN ---
01/11/2017 PATIENT NAME: SHAHRAM CHERY SUBJECTIVE: This is a 66-year-old gentleman who lives at a local [facility], who was brought by ambulance to the emergency room a few days ago with concerns about shortness of breath and low oxygen saturations. The patient has had a history of a recent pneumonia and just finishing some Bactrim that he had been taking. The patient had been reporting he was feeling short of breath. The nursing staff had reported the patient could not keep his oxygen saturations above 80% on 4 L nasal cannula. The patient was having some thick green sputum he was coughing up. He denied any fever, chills, or chest pain. Today, the patient states that he is feeling much better than when he came in. He says he still feels short of breath. He denies any fever or chills. OBJECTIVE: VITAL SIGNS: Today, temperature is 97.2, pulse of 69, blood pressure is 144/49, respiratory rate is 20, oxygen saturations are 95% on 5 L nasal cannula. GENERAL: This is a white elderly male in no acute distress. HEART: Heart tones are regular rate and rhythm. No murmurs identified. LUNGS: Sounds are diminished throughout lung cochran. ABDOMEN: Soft, nontender, and nondistended. Bowel sounds are present x4. LABORATORY DATA: The patient's lab work today: CBC showed a white count still elevated at 14.3, the patient's hemoglobin is low at 7.9. Chemistry panel today shows potassium at 5.1, BUN 27, creatinine 1.8, GFR is 38. The patient's brain natriuretic peptide was obtained yesterday was just slightly elevated at 208. Troponin was negative. CK-MB was also negative. IMPRESSION AND PLAN: 1. Pneumonia. Plan: Continue with DuoNeb as needed. Also continue with Pulmicort and Brovana nebulizers twice a day. We will continue with IV antibiotic therapy. Vancomycin to be dosed by pharmacy. Levaquin 500 mg IV once daily. We will continue with oxygen per nasal cannula to keep his saturations greater than 90%. The patient's chest x-ray did show positive for pneumonia. We will continue to monitor the patient's oxygen saturations. 2. Diabetes mellitus type 2. Plan: Continue with aspirin 81 mg daily along with blood sugar checks four times daily. We will continue with Victoza 0.6 mg subcu daily. We will also continue with the patient's Levemir. The patient's blood sugar was low this morning at 27, he was given some dextrose per nursing staff. I am going to give him a smaller dose of Levemir, today I gave him 65 units instead of his 85 units, he also gets 70 units in the evening. Tomorrow, we will resume his regular dose. We will continue with ADA diet. 3. Coronary artery disease with hypertension. Plan: Continue with beta- walter of Coreg 18.75 mg twice daily. The patient is usually on Plavix, we have that on hold at this time. We will continue with Lasix 40 mg daily. 4. Mood disorder. Plan: Continue with Depakote as ordered along with Lexapro 20 mg daily and Seroquel 500 mg at bedtime. 5. History of benign prostatic hyperplasia. Plan: Continue with Proscar 5 mg daily along with Flomax 0.4 mg daily. 6. Hyperlipidemia. Plan: Continue with Lipitor 40 mg daily. 7. Anemia. The patient's hemoglobin is low at 7.9. We will transfuse 1 unit of PRBCs today. We will repeat a CBC in the morning. We will continue to hold Plavix. /[id number]/MODL MTDD
[2017-01-11] MEDS ORDERED: Furosemide 40 MG/4 ML VIAL IVPUSH STA (20:00)
[2017-01-11] MEDS: Tamsulosin 0.4 MG Cap.ER PO SCH (20:04)
[2017-01-11] MEDS: atorvaSTATin 40 MG Tab PO SCH (20:04)
[2017-01-11] MEDS: QUEtiapine 100 MG Tab PO SCH (20:05)
[2017-01-12] MEDS: ALPRAZolam 0.25 MG Tab PO PRN ×2 (00:06→05:47)
[2017-01-12] MEDS: Gabapentin 300 MG Cap PO SCH ×2 (07:58→19:34)
[2017-01-12] MEDS: Carvedilol 6.25 MG Tab PO SCH ×2 (07:58→19:33)
[2017-01-12] MEDS: Acetaminophen 650 MG Tab.ER PO SCH ×2 (07:59→19:34)
[2017-01-12] MEDS: Ferrous Sulfate 325 MG Tab PO SCH ×2 (08:00→17:03)
[2017-01-12] MEDS: Escitalopram 10 MG Tab PO SCH (08:00)
[2017-01-12] MEDS: Finasteride 5 MG Tab PO SCH (08:01)
[2017-01-12] MEDS: Divalproex Sodium Delayed-Release 250 MG Tab.CR PO SCH ×4 (08:01→19:34)
[2017-01-12] MEDS: Furosemide 40 MG Tab PO SCH (08:02)
[2017-01-12] MEDS: Insulin Detemir 100 Units/ML 3 ML Pen SUBCUT SCH (08:02)
[2017-01-12] MEDS: Budesonide 0.5 MG/2 ML Neb Susp INH SCH ×2 (08:47→19:30)
[2017-01-12] MEDS: Albuterol/Ipratropium 3.0-0.5 MG/3 ML Neb Soln NEB SCH ×4 (09:38→20:56)
--- NOTE | 2017-01-12 10:53 | PN ---
01/12/2017 PATIENT NAME: SHAHRAM CHERY SUBJECTIVE: The patient states that he is still not feeling really good. He says he feels really weak. He still complains of shortness of breath and cough. I asked them to give me a thumbs up if he felt he was feeling better and they gave me a thumbs sideways stating that he feels about the same. OBJECTIVE: VITAL SIGNS: Today, temperature is 96.9, pulse is 70, blood pressure is 139/64, oxygen saturations are 95% on 5 L mask or nasal cannula, and respiratory rate is 20. GENERAL: This is an elderly, white, overweight gentleman, who does appear pale and exhausted just on general exam. HEART: Heart tones are very distant. LUNGS: Lung sounds are distant but clear in upper lobes, diminished at bilateral bases. ABDOMEN: Soft, nontender, nondistended, large, and obese. Bowel sounds present x4. LABORATORY DATA: The patient's lab work that was obtained this morning. CBC shows a white count that continues to be elevated at 11.1, hemoglobin slightly up from yesterday at 8.8. The patient's blood sugar this morning was 140. IMPRESSION AND PLAN: 1. Pneumonia. The patient's chest x-ray did demonstrate an infiltrate per Radiology. Plan; we are going to continue with Duonebs, actually we are going to change the DuoNebs to every six hours. We are going to hold the patient's Brovana, so he will get DuoNebs every six-hours scheduled. Holding Brovana at this time. We will continue with his Pulmicort nebulizer twice a day. We are going to continue with IV antibiotic therapy of vancomycin. Pharmacy to dose along with Levaquin 500 mg IV once daily. We will continue with oxygen per nasal cannula or mask to keep his sats greater than 90%. 2. Diabetes mellitus type 2. Plan; the patient did have another low blood sugar this morning at 32, etiology contributing to the patient being on an ADA diet while here in the hospital with a better diet than at the [facility]. We are going to hold the patient's p.m. dose of Levemir. He was receiving 70 units. We will continue with 85 units of Levemir once a day in the morning. We are going to start the patient on low-dose sliding scale insulin with NovoLog as needed. We will check blood sugars four times a day. We will continue with ADA diet. 3. History of coronary artery disease with hypertension. Plan; continue with beta-walter of Coreg 18.75 mg twice a day. We are going to restart the patient back on his Plavix now that his hemoglobin is stable. Continue that at 75 mg daily. We will continue with Lasix 40 mg p.o. daily. We will discontinue the patient's telemetry. 4. Mood disorder. Plan; continue the patient on Depakote as ordered along with Lexapro 20 mg daily and Seroquel 500 mg at bedtime. 5. History of benign prostatic hyperplasia. Plan; continue with Proscar 5 mg daily in the morning along with Flomax 0.4 mg daily. 6. Hyperlipidemia. Plan; continue with Lipitor 40 mg daily. 7. Anemia. Plan; slightly improved today. Yesterday's hemoglobin was 7.9. I did transfuse with one unit of packed RBCs yesterday. Now today, his hemoglobin is up to 8.8. We did restart the patient's Plavix today again at 75 mg a day. /[id number]/MODL MTDD
[2017-01-12] MEDS: Polyethylene Glycol 3350 Powder 17 GM Packet PO SCH (13:25)
[2017-01-12] MEDS: Levofloxacin/Dextrose 5%-Water 50 ML IV SCH (13:25)
[2017-01-12] MEDS: Aspirin 81 MG Tab.EC PO SCH (13:26)
[2017-01-12] MEDS: Multivitamins with Minerals/Iron/Folic Acid/Lycopene Tab PO SCH (13:26)
[2017-01-12] MEDS: Cholecalciferol (Vitamin D3) 1,000 Unit Tab PO SCH (13:27)
[2017-01-12] MEDS: Clopidogrel 75 MG Tab PO SCH (13:34)
[2017-01-12] MEDS: Insulin Aspart 100 Units/ML 3 ML Pen SUBCUT SCH ×4 (13:35→21:02)
[2017-01-12] MEDS ORDERED: Atropine 0.1 MG/ML 10 ML Syringe IVPUSH PRN (17:58)
[2017-01-12] MEDS ORDERED: EPINEPHrine 1:10,000 1 MG/10 ML Syringe IVPUSH PRN (17:58)
[2017-01-12] MEDS ORDERED: Lidocaine 2% 100 MG/5 ML Syringe IVPUSH PRN (17:58)
[2017-01-12] MEDS ORDERED: Nitroglycerin 0.4 MG Tab.SL SL PRN (17:58)
[2017-01-12] MEDS: Liraglutide (rDNA Origin) 0.6 MG/0.1 ML 3 ML Pen SUBCUT SCH (19:35)
[2017-01-12] MEDS: Tamsulosin 0.4 MG Cap.ER PO SCH (20:59)
[2017-01-12] MEDS: atorvaSTATin 40 MG Tab PO SCH (20:59)
[2017-01-12] MEDS: QUEtiapine 100 MG Tab PO SCH (20:59)
[2017-01-13] MEDS: Albuterol/Ipratropium 3.0-0.5 MG/3 ML Neb Soln NEB SCH ×4 (01:06→12:29)
[2017-01-13] MEDS: ALPRAZolam 0.25 MG Tab PO PRN (04:26)
[2017-01-13 06:45] VITALS: BP 139/51
[2017-01-13] MEDS: Budesonide 0.5 MG/2 ML Neb Susp INH SCH (06:59)
[2017-01-13 08:28] LABS: O2 DELIVERY DEVICE NASAL CANNULA
[2017-01-13 08:29] LABS: BASE EXCESS ARTERIAL 15 mmol/L (-2-3); BICARBONATE,ARTERIAL 39.4 mmol/L (22-26); O2 SATURATION ARTERIAL 92 % (95-98)
[2017-01-13 08:31] LABS: PCO2 ARTERIAL 63 mmHG (35-45); PO2 ARTERIAL 65 mmHG (80-105)
[2017-01-13] MEDS: Insulin Aspart 100 Units/ML 3 ML Pen SUBCUT SCH ×2 (08:38→12:31)
[2017-01-13] MEDS: Carvedilol 6.25 MG Tab PO SCH (08:41)
[2017-01-13] MEDS: Ferrous Sulfate 325 MG Tab PO SCH (08:42)
[2017-01-13] MEDS: Escitalopram 10 MG Tab PO SCH (08:42)
[2017-01-13] MEDS: Acetaminophen 650 MG Tab.ER PO SCH (08:42)
[2017-01-13] MEDS: Divalproex Sodium Delayed-Release 250 MG Tab.CR PO SCH (08:43)
[2017-01-13] MEDS: Furosemide 40 MG Tab PO SCH (08:43)
[2017-01-13] MEDS: Clopidogrel 75 MG Tab PO SCH (08:44)
[2017-01-13] MEDS: Finasteride 5 MG Tab PO SCH (08:44)
[2017-01-13] MEDS: Polyethylene Glycol 3350 Powder 17 GM Packet PO SCH (08:44)
[2017-01-13] MEDS: Gabapentin 300 MG Cap PO SCH (08:44)
[2017-01-13] MEDS: Insulin Detemir 100 Units/ML 3 ML Pen SUBCUT SCH (08:46)
--- NOTE | 2017-01-13 10:23 | PCM.PN ---
- General Info Date of Service: 01/13/17 Subjective Update: Patient initially unable to provide much input due to lethargy. Patient did improve shortly thereafter and stated he is not feeling any better and is quite tired. - Review of Systems General: Reports: Fatigue, Malaise, Other (No pain). Denies: Fever Pulmonary: Reports: cough, sputum. Denies: shortness of breath Cardiovascular: Denies: Chest Pain Gastrointestinal: Denies: Abdominal pain Systems Review Comment:: Call received from charge nurse prior to rounds stating patient very lethargic and has increased respirations. Patient did receive dose of xanax 0.25 mg around 0400 due to anxiety. Order given to obtain ABGs. - Patient Data Vitals - most recent: Last Vital Signs Temp 96.1 F 01/13/17 06:44 Pulse 60 01/13/17 08:41 Resp 24 H 01/13/17 06:44 BP 139/51 L 01/13/17 08:41 Pulse Ox 95 01/13/17 06:59 Weight - most recent: 268 lb 4.8 oz I&O - last 24 hours: Intake & Output 01/12/17 01/13/17 01/13/17 22:59 06:59 14:59 Intake Total 360 150 Output Total 975 300 Balance -615 -150 Lab Results last 24 hrs: Laboratory Results - last 24 hr 01/12/17 01/12/17 01/12/17 Range/Units 12:21 16:40 20:57 ABG pH (7.35-7.45) ABG pCO2 (35-45) mmHG ABG pO2 (80-105) mmHG ABG HCO3 (22-26) mmol/L ABG Total CO2 (23-27) mmol/L ABG O2 Saturation (95-98) % ABG Base Excess (-2-3) mmol/L O2 Delivery Device POC Glucose 202 H 176 H 240 H (74-106) mg/dl 01/13/17 Range/Units 08:20 ABG pH 7.41 (7.35-7.45) ABG pCO2 63 H* (35-45) mmHG ABG pO2 65 L* (80-105) mmHG ABG HCO3 39.4 H (22-26) mmol/L ABG Total CO2 41 H (23-27) mmol/L ABG O2 Saturation 92 L (95-98) % ABG Base Excess 15 H (-2-3) mmol/L O2 Delivery Device Nasal cannula POC Glucose (74-106) mg/dl [facility] Results last 24 hrs: Microbiology 01/10/17 13:25 Aerobic Blood Culture - Preliminary Blood - Venous NO GROWTH AFTER 2 DAYS Anaerobic Blood Culture - Preliminary NO GROWTH AFTER 2 DAYS 01/10/17 11:50 Aerobic Blood Culture - Preliminary Blood - Venous - Lab Draw NO GROWTH AFTER 2 DAYS Anaerobic Blood Culture - Preliminary NO GROWTH AFTER 2 DAYS Med Orders - Current: Current Medications Acetaminophen (Tylenol) 650 mg PO Q4H PRN PRN Reason: Pain/Fever Acetaminophen (Tylenol Arthritis Pain) 650 mg PO BID@799,1999 [facility] Last Admin: 01/13/17 08:42 Dose: 650 mg Albuterol/Ipratropium (Duoneb 3.0-0.5 Mg/3 Ml) 3 ml NEB Q4HRRT [facility] Last Admin: 01/13/17 09:11 Dose: 3 ml Arformoterol Tartrate (Brovana) 15 mcg INH BID@1000,2200 [facility] Last Admin: 01/11/17 22:10 Dose: 15 mcg Aspirin (Halfprin) 81 mg PO DAILY@1200 [facility] Last Admin: 01/12/17 13:26 Dose: 81 mg Atorvastatin Calcium (Lipitor) 40 mg PO BEDTIME [facility] Last Admin: 01/12/17 20:59 Dose: 40 mg Atropine Sulfate (Atropine 0.1 Mg/Ml) 0 mg IVPUSH ASDIRECTED PRN PRN Reason: Heart Bisacodyl (Dulcolax) 10 mg RECTAL BEDTIME PRN PRN Reason: Constipation Last Admin: 01/12/17 01:51 Dose: 10 mg Budesonide (Pulmicort) 0.5 mg INH BIDRT [facility] Last Admin: 01/13/17 06:59 Dose: 0.5 mg Carvedilol (Coreg) 18.75 mg PO BID@799,1999 [facility] Last Admin: 01/13/17 08:41 Dose: 18.75 mg Cholecalciferol (Vitamin D3) 2,000 units PO DAILY@1200 [facility] Last Admin: 01/12/17 13:27 Dose: 2,000 units Clopidogrel Bisulfate (Plavix) 75 mg PO DAILY [facility] Last Admin: 01/13/17 08:44 Dose: 75 mg Divalproex Sodium (Divalproex Sodium) 500 mg PO TIDMEALS [facility] Epinephrine HCl (Epinephrine 1:10,000) 1 mg IVPUSH ASDIRECTED PRN PRN Reason: Heart Escitalopram Oxalate (Lexapro) 20 mg PO DAILY@0800 [facility] Last Admin: 01/13/17 08:42 Dose: 20 mg Ferrous Sulfate (Ferrous Sulfate) 325 mg PO BIDMEALS [facility] Last Admin: 01/13/17 08:42 Dose: 325 mg Finasteride (Proscar) 5 mg PO DAILY@0800 [facility] Last Admin: 01/13/17 08:44 Dose: 5 mg Fluticasone Propionate (Flonase) 0 gm NASBOTH DAILY PRN PRN Reason: paranasal sinus disease Furosemide (Lasix) 40 mg PO DAILY@0800 [facility] Last Admin: 01/13/17 08:43 Dose: 40 mg Gabapentin (Neurontin) 300 mg PO BID@0800,1999 [facility] Last Admin: 01/13/17 08:44 Dose: 300 mg Vancomycin HCl 1.25 gm/ Sodium (Chloride) 275 mls @ 138 mls/hr IV Q24H [facility] Last Admin: 01/12/17 16:11 Dose: 100 mls/hr Levofloxacin/Dextrose (Levaquin In D5w 250 Mg/50 Ml) 50 mls @ 50 mls/hr IV Q24H [facility] Last Admin: 01/12/17 13:25 Dose: 50 mls/hr Insulin Aspart (Novolog) 0 unit SUBCUT 0730,1130,1730,2100 [facility] PRN Reason: Protocol Last Admin: 01/13/17 08:38 Dose: 1 units Insulin Detemir (Levemir) 85 unit SUBCUT 0800 [facility] Last Admin: 01/13/17 08:46 Dose: 85 units Lidocaine HCl (Xylocaine 2%) 0 mg IVPUSH ASDIRECTED PRN PRN Reason: Heart Liraglutide (Victoza) 0.6 mg SUBCUT DAILY@1999 [facility] Last Admin: 01/12/17 19:35 Dose: Not Given Multivitamins/Minerals (Centrum) 1 tab PO DAILY@1200 [facility] Last Admin: 01/12/17 13:26 Dose: 1 tab Nitroglycerin (Nitrostat) 0.4 mg SL ASDIRECTED PRN PRN Reason: Heart Nystatin (Nystop) 0 gm TOP DAILY PRN PRN Reason: Cutaneous Candidiasis Last Admin: 01/11/17 16:59 Dose: 1 applic Polyethylene Glycol (Miralax) 17 gm PO DAILY [facility] Last Admin: 01/13/17 08:44 Dose: 17 gm Quetiapine Fumarate (Seroquel) 250 mg PO BEDTIME LAN Senna/Docusate Sodium (Senna Plus) 2 tab PO DAILY@1800 LAN Last Admin: 01/12/17 17:03 Dose: 2 tab Sodium Chloride (Syrex Flush) 5 ml FLUSH Q8HR PRN PRN Reason: Keep Vein Open Sodium Chloride ([place] Nasal [place]) 0 ml NASBOTH Q1H PRN PRN Reason: Congestion Tamsulosin HCl (Flomax) 0.4 mg PO BEDTIME [facility] Last Admin: 01/12/17 20:59 Dose: 0.4 mg Vancomycin HCl (Pharmacy To Dose - Vancomycin) 1 dose .XX ASDIRECTED LAN Discontinued Medications Acetaminophen (Tylenol) 650 mg PO Q4H PRN PRN Reason: Pain (Mild 1-3)/fever Last Admin: 01/10/17 15:48 Dose: 650 mg Albuterol/Ipratropium (Duoneb 3.0-0.5 Mg/3 Ml) 3 ml NEB ONETIME ONE Stop: 01/10/17 10:10 Last Admin: 01/10/17 10:13 Dose: 3 ml Albuterol/Ipratropium (Duoneb 3.0-0.5 Mg/3 Ml) 3 ml NEB Q4H PRN PRN Reason: Shortness Of Breath/wheezing Last Admin: 01/12/17 08:00 Dose: 3 ml Alprazolam (Xanax) 0.25 mg PO Q6H PRN PRN Reason: Anxiety Last Admin: 01/13/17 04:26 Dose: 0.25 mg Atropine Sulfate (Atropine 0.1 Mg/Ml) 0 mg IVPUSH ASDIRECTED PRN PRN Reason: Heart Budesonide (Pulmicort) 0.5 mg INH DAILY PRN PRN Reason: Shortness of Breath Budesonide (Pulmicort) 0.5 mg INH DAILY@0600 [facility] Clopidogrel Bisulfate (Plavix) 75 mg PO DAILY [facility] Last Admin: 01/11/17 12:29 Dose: Not Given Dextrose/Water (Dextrose 50% In Water) 50 ml IVPUSH ONETIME ONE Stop: 01/11/17 09:31 Last Admin: 01/11/17 05:10 Dose: 50 ml Divalproex Sodium (Divalproex Sodium) 250 mg PO QID@08,12,16,20 [facility] Last Admin: 01/11/17 16:48 Dose: 250 mg Divalproex Sodium (Divalproex Sodium) 500 mg PO QID@08,12,16,20 [facility] Last Admin: 01/13/17 08:43 Dose: 500 mg Epinephrine HCl (Epinephrine 1:10,000) 1 mg IVPUSH ASDIRECTED PRN PRN Reason: Heart Furosemide (Lasix) 20 mg IVPUSH NOW STA Stop: 01/11/17 20:01 Last Admin: 01/11/17 20:13 Dose: 20 mg Levofloxacin/Dextrose 500 mg/ (Premix) 100 mls @ 100 mls/hr IV Q24H [facility] Last Admin: 01/11/17 12:29 Dose: Not Given Vancomycin HCl 1 gm/ Sodium (Chloride) 250 mls @ 167 mls/hr IV ONETIME ONE Stop: 01/10/17 12:49 Last Admin: 01/10/17 14:49 Dose: 167 mls/hr Insulin Aspart (Novolog) 0 unit SUBCUT QID [facility] PRN Reason: Protocol Last Admin: 01/11/17 00:10 Dose: Not Given Insulin Detemir (Levemir) 70 unit SUBCUT 2000 [facility] Last Admin: 01/11/17 20:37 Dose: Not Given Insulin Detemir (Levemir) 65 unit SUBCUT ONETIME ONE Stop: 01/11/17 08:18 Last Admin: 01/11/17 08:15 Dose: 65 units Lidocaine HCl (Xylocaine 2%) 0 mg IVPUSH ASDIRECTED PRN PRN Reason: Heart Lorazepam (Ativan) 0.5 mg IVPUSH ONETIME ONE Stop: 01/10/17 15:58 Last Admin: 01/10/17 16:18 Dose: 0.5 mg Metformin HCl (Glucophage Xr) 500 mg PO WITHBREAKFAST [facility] Nitroglycerin (Nitrostat) 0.4 mg SL ASDIRECTED PRN PRN Reason: Heart Aquaphor Advanced Therapy Ointment 1 Applic 1 applic TOP BID PRN PRN Reason: dry skin dermatitis Nystatin [Nystatin] (1 Applic) 1 applic TOP DAILY PRN PRN Reason: Rash Selenium Sulfide/Aloe Vera [Selsun Blue Moist 1% Shampoo] 1 applic TOP ASDIRECTED PRN PRN Reason: dry scalp Selenium Sulfide/Aloe Vera [Selsun Blue Moist 1% Shampoo] 1 applic TOP Q7D [facility] Last Admin: 01/10/17 15:59 Dose: Not Given Quetiapine Fumarate (Seroquel) 500 mg PO BEDTIME [facility] Last Admin: 01/12/17 20:59 Dose: 500 mg Sodium Chloride (Syrex Flush) 5 ml FLUSH Q8HR PRN PRN Reason: Keep Vein Open Vancomycin HCl (Pharmacy To Dose - Vancomycin) 1 dose .XX ASDIRECTED LAN - Exam Quality Assessment: supplemental oxygen (2.5 liters nasal cannula), DVT prophylaxis (Lovenox) General: alert (answers questions appropriately), lethargic Lungs: Decreased breath sounds (bilateral lower lobes), Crackles (coarse crackles to upper lobes), Other (intercostal retractions noted) Cardiovascular: Regular Rate, Regular Rhythm Abdomen: soft, no tenderness Extremities: edema (trace edema to BLE) Skin: warm, dry Neurological: normal speech Psy/Mental Status: alert - Problem List Review Problem List Initiated/Reviewed/Updated: Yes - My Orders Last 24 Hours: My Active Orders 01/13/17 10:10 IRON PNL (FE, TIBC, MIRIAN, %SAT) [REF] Routine 01/13/17 10:11 FOLATE [REF] Routine FOLATE, RBC [REF] Routine OCCULT BLOOD SCREEN [OP] Routine VITAMIN B12 [REF] Routine 01/13/17 12:00 Divalproex Sodium 500 mg PO TIDMEALS 01/13/17 21:00 QUEtiapine [SEROquel] 250 mg PO BEDTIME 01/14/17 05:11 BMP [BASIC METABOLIC PANEL,BMP] [CHEM] AM CBC WITH AUTO DIFF [HEME] AM - Plan Plan:: PRIMARY ASSESSMENT/PLAN: Left lower lobe pneumonia, residential/health-care acquired. Continue duonebs QID, pulmicort BID, and IV levaquin and vancomycin. Continue with oxygen to keep saturation level 90% or greater. Hold Brovana. COPD exacerbation, chronic CO2 retainer. ABGs revealed CO2 of 63, normal pH of 7.41, and HCO3 of 39.4. Excessive sedation, question relation to CO2 retention versus sedative medications. Discontinue PRN xanax. Decrease depakote to 500 mg TID. Decrease seroquel to 250 mg at bedtime. Anemia, question etiology. Hgb 8.8 after 1 unit of PRBC transfusion the day prior. Normal MCV & MCH; Elevated monocytes and RDW-question viral syndrome. Will obtain anemia workup today. Will also obtain stool for occult blood. Repeat CBC in AM. Type 2 diabetes mellitus. Blood sugar 166 this AM. Continue accuchecks. Continue novolog sliding scale and levemir 85 units daily. Continue victoza. SECONDARY ASSESSMENT/PLAN: Coronary artery disease. Continue plavix and coreg. Hypertension. Hyperlipidemia. Chronic kidney disease, stage 3. BMP in AM. Depression. Continue lexapro. Mood disorder. See above adjustment of medications. Obesity. Chronic neck and back pain. Continue gabapentin. BPH. Continue flomax. DVT prophylaxis: Lovenox daily. Overall plan: Continue to monitor sedation level. Continue IV antibiotics and nebulizer treatments. Plan of care reviewed with Dr. Downs. He is in agreement with the plan of care.
[2017-01-13] MEDS ORDERED: Enoxaparin 40 MG/0.4 ML Syringe SUBCUT SCH (10:30)
[2017-01-13] MEDS: Arformoterol 15 MCG/2 ML Neb Soln INH SCH (10:51)
[2017-01-13] MEDS ORDERED: Liraglutide (rDNA Origin) 0.6 MG/0.1 ML 3 ML Pen SUBCUT SCH (11:00)
[2017-01-13] MEDS ORDERED: Divalproex Sodium Delayed-Release 250 MG Tab.CR PO SCH (12:00)
--- NOTE | 2017-01-13 12:22 | PCM.DCSUM1 ---
Discharge Summary - Hospital Course Brief History: This is a 66 year old male who presented to the emergency department with hypoxia. The patient resides at the [facility]. He had recently had pneumonia and had just finished his course of bactrim. He felt fine the morning of admission, but became quite short of breath while ambulating to the bathroom. He was requiring 4 liters of oxygen to keep his oxygen saturations above 90%. He was evaluated in the emergency room. Chest x- ray revealed "increased opacifications of the left hemithorax likely a combination of pleural fluid, volume loss and possible infiltrates." Initial white blood cell count was 14.7. He was found to have a potassium of 5.5, sodium of 132 and GFR of 35. Troponin was 0.02. CKMB 3.40. CK elevated at 308. EKG reported as normal sinus rhythm at 75 bpm. BNP 208. He was admitted for further workup, monitoring, and treatment of his condition. - Discharge Data Discharge Date: 01/13/17 Discharge Disposition: DC/Tfer to Acute Hospital 02 Condition: Fair - Patient Summary/Data Operative Procedure(s) Performed: Patient had a PICC line inserted into the right arm on 01/13/17 due to poor IV access. Complications: Patient had brief episode of lethargy the morning of transfer and had worsening lung sounds. Chest x-ray reported by physician that placed PICC line showed complete white out of left lung. Patient remained a full code so was transferred to higher level of care. Consults: Dr. Lopez, hospitalist, [facility] Labs Pending at D/C: Anemia workup - Discharge Plan Home Medications: Home Meds Acetaminophen [Tylenol Arthritis] 1 tab PO BID@0800,199907/22/16 [History] Acetaminophen [Tylenol] 650 mg PO Q4H PRN 07/22/16 [History] Aspirin [Halfprin] 1 tab PO DAILY@1200 07/22/16 [History] Bisacodyl [Dulcolax] 10 mg RECTAL BEDTIME PRN 07/22/16 [History] Carvedilol 18.75 mg PO BID@0800,199907/22/16 [History] Clopidogrel [Plavix] 75 mg PO DAILY 07/22/16 [History] Escitalopram [Lexapro] 20 mg PO DAILY@0800 07/22/16 [History] Finasteride 5 mg PO DAILY@0800 07/22/16 [History] Fluticasone Propionate [Flonase] 2 spray NASBOTH DAILY PRN 07/22/16 [History] Gabapentin [Neurontin] 300 mg PO BID@0800,2000 07/22/16 [History] Magnesium Oxide 400 mg PO BID@0800,1800 07/22/16 [History] Multivitamin [Men's Multi-Vitamin] 1 tab PO DAILY@1200 07/22/16 [History] QUEtiapine Fumarate [Seroquel] 500 mg PO BEDTIME 07/22/16 [History] Sennosides/Docusate Sodium [Senna S Tablet] 2 tab PO DAILY@1800 07/22/16 [ History] Sodium Chloride [Saline Nasal [place]] 1 spray NASBOTH Q1H PRN 07/22/16 [History] Tamsulosin [Flomax] 0.4 mg PO BEDTIME 07/22/16 [History] atorvaSTATin [Lipitor] 40 mg PO BEDTIME 07/22/16 [History] Aquaphor Advanced Therapy Ointment 1 applic TOP BID PRN 12/15/16 [History] Arformoterol [Brovana] 2 ml INH BID@1000,2200 12/15/16 [History] Budesonide [Pulmicort] 2 ml INH DAILY PRN 12/15/16 [History] Budesonide [Pulmicort] 2 ml INH DAILY@0600 12/15/16 [History] Cholecalciferol (Vitamin D3) [Vitamin D3] 2,000 unit PO DAILY@1200 12/15/16 [ History] Divalproex Sodium 500 mg PO QID@08,12,16,20 12/15/16 [History] Furosemide 40 mg PO DAILY@0800 12/15/16 [History] Insulin Glarg,Human.Rec.Analog [Lantus] 70 units SQ 199912/15/16 [History] Insulin Glarg,Human.Rec.Analog [Lantus] 85 unit SQ 0812/15/16 [History] Liraglutide [Victoza] 0.6 mg SQ DAILY@199912/15/16 [History] Non-Formulary Medication [NF Drug] 1 applic TOP BID PRN 12/15/16 [History] Nystatin 1 applic TOP DAILY PRN 12/15/16 [History] Nystatin [Nystop] 1 applic TOP DAILY PRN 12/15/16 [History] Selenium Sulfide/Aloe Vera [Selsun Blue Moist 1% Shampoo] 1 applic TOP ASDIRECTED PRN 12/15/16 [History] Selenium Sulfide/Aloe Vera [Selsun Blue Moist 1% Shampoo] 1 applic TOP WEEKLY [History] metFORMIN HCl [Metformin HCl ER] 500 mg PO WITHBREAKFAST 12/15/16 [History] Ferrous Sulfate 325 mg PO BIDMEALS #90 12/18/16 [Rx] Magnesium Hydroxide [Milk of Magnesia] 30 ml PO DAILY PRN 01/10/17 [History] - Discharge Summary/Plan Comment DC Time >30 min.: No Discharge Summary/Plan Comment: Date of admission: 01/10/17 Date of discharge/transfer: 01/13/17 Admitting Diagnosis: Primary: Pneumonia-[place] [facility] acquired, Hypoxia/respiratory failure, Leukocytosis secondary to pneumonia, Acute on chronic COPD, Right lower extremity cellulitis, Bilateral lower extremity edema Secondary: Type 2 diabetes mellitus, Morbid obesity, Anemia, History of recent pneumonia, Hyperlipidemia, Hypertension, Chronic kidney disease stage 3, Chronic neck & back pain, Depression, BPH, Osteoarthritis Final Diagnosis: Primary: Left lung pneumonia-[place] [facility] acquired, Hypoxia/respiratory failure, Leukocytosis secondary to pneumonia, Acute on chronic COPD, Right lower extremity cellulitis, Bilateral lower extremity edema Secondary: Type 2 diabetes mellitus, Morbid obesity, Anemia, History of recent pneumonia, Hyperlipidemia, Hypertension, Chronic kidney disease stage 3, Chronic neck & back pain, Depression, BPH, Osteoarthritis Procedures performed: PICC line placement Hospital Course: The patient's hospital course was not improving as expected and was thus transferred to a higher level of care. The patient was found to have pneumonia and was initiated on IV Levaquin and vancomycin. He was given duonebs and performed incentive spirometry. His hemodynamic status was monitored closely along with telemetry monitoring. He remained afebrile throughout his stay. Patients Brovana was placed on hold, but he was continued on Pulmicort nebs. Blood cultures x 2 were obtained and revealed no growth. Sputum cultures were obtained and revealed staphylococcus aureus and yeast. The staph aureus was sensitive to vancomycin and levaquin. The patient had two episodes of a low blood sugars (27 and 32) and was treated with dextrose. His levemir was adjusted accordingly. He was initiated on a low dose Novolog sliding scale. The patient was found to have a hemoglobin of 7.9 and he was given 1 unit of PRBCs. Repeat hemoglobin was 8.8. On the morning of transfer, call was placed to myself regarding patient's lethargy and increased respirations. ABGs were ordered at that time which revealed pH 7.41, CO2 63 (H), O2 65, CO3 39.4 (H). The patient had been experiencing episodes of anxiety and had been receiving xanax 0.25 mg po every 6 hours PRN. He had received a dose of this at 0400. The patient's lethargy seemed to improve some after his oxygen level was turned down due to high CO2 levels. Adjustments were made of his mood stabilizers. The xanax was discontinued. The patient's IV sites were not holding and so a PICC line was placed by Dr. Downs on 01/13/17. Chest x-ray to confirm placement of this was reported as showing a complete white out of the left lung. Patient remained a full code status so it was decided transfer to higher level of care was warranted. Call placed to [facility] and patient case reviewed with Dr. Lopez, hospitalist. He agreed to accept the patient. New medications on discharge: None New changes to home medications on discharge: -Decrease Depakote to 500 mg po TID -Decrease Seroquel to 250 mg po at HS Regular home medications on discharge: -Pulmicort 2 mL inhale daily at 0600 and daily PRN -Brovana 2 mL inhale BID -Lantus 70 units subQ daily at 2000 -Lantus 85 units daily at 0800 -Victoza 0.6 mg subQ daily -Metformin 500 mg po in AM -Furosemide 40 mg po daily -Magnesium oxide 500 mg po BID -Gabapentin 300 mg po BID -Finasteride 5 mg po daily -Lexapro 20 mg po daily -Plavix 75 mg po daily -Ferrous Sulfate 325 mg po daily -Coreg 18.75 mg po BID -Tylenol arthritis 1 tab po BID -Lipitor 40 mg po at HS -Flomax 0.4 mg po at HS -Senna S 2 tabs po daily -Multivitamin 1 tab po daily -Vitamin D3 2000 units po daily -Aspirin 81 mg po daily -Selsun Blue Shampoo 1 application topical weekly and PRN -Nystatin 1 application topically daily PRN -Aquaphor 1 application topically BID PRN -Saline nasal spray 1 spray to each nostril every 1 hour PRN -Milk of Magnesia 30 mL po daily PRN -Flonase 2 sprays to each nostril daily PRN -Dulcolax 10 mg rectally at HS PRN -Tylenol 650 mg po every 4 hours PRN Condition, Treatment, and Final Disposition: The patient is in fair, but stable condition at the time of discharge. He was transferred to [facility] via [facility] ambulance. Guardian made aware of transfer and was in agreement. Discharge plan reviewed with Dr. Downs. He is in agreement with the plan of care. - General Info Date of Service: 01/13/17 - Review of Systems General: Reports: Fatigue, Malaise, Other (No pain). Denies: Fever Pulmonary: Reports: cough, sputum, wheezing. Denies: shortness of breath Cardiovascular: Reports: Edema. Denies: Chest Pain Gastrointestinal: Denies: Abdominal pain - Patient Data Vitals - Most Recent: Last Vital Signs Temp 96.1 F 01/13/17 06:44 Pulse 68 01/13/17 09:11 Resp 24 H 01/13/17 06:44 BP 139/51 L 01/13/17 08:41 Pulse Ox 93 L 01/13/17 09:11 Weight - Most Recent: 268 lb 4.8 oz I&O - Last 24 hours: Intake & Output 01/12/17 01/13/17 01/13/17 22:59 06:59 14:59 Intake Total 360 150 Output Total 975 300 Balance -615 -150 Lab Results - Last 24 hrs: Laboratory Results - last 24 hr 01/12/17 01/12/17 01/12/17 Range/Units 12:21 16:40 20:57 ABG pH (7.35-7.45) ABG pCO2 (35-45) mmHG ABG pO2 (80-105) mmHG ABG HCO3 (22-26) mmol/L ABG Total CO2 (23-27) mmol/L ABG O2 Saturation (95-98) % ABG Base Excess (-2-3) mmol/L O2 Delivery Device POC Glucose 202 H 176 H 240 H (74-106) mg/dl 01/13/17 01/13/17 Range/Units 05:56 08:20 ABG pH 7.41 (7.35-7.45) ABG pCO2 63 H* (35-45) mmHG ABG pO2 65 L* (80-105) mmHG ABG HCO3 39.4 H (22-26) mmol/L ABG Total CO2 41 H (23-27) mmol/L ABG O2 Saturation 92 L (95-98) % ABG Base Excess 15 H (-2-3) mmol/L O2 Delivery Device Nasal cannula POC Glucose 166 H (74-106) mg/dl TONNY Results - Last 24 hrs: Microbiology 01/10/17 11:50 Aerobic Blood Culture - Preliminary Blood - Venous - Lab Draw NO GROWTH AFTER 3 DAYS Anaerobic Blood Culture - Preliminary NO GROWTH AFTER 3 DAYS 01/10/17 13:25 Aerobic Blood Culture - Preliminary Blood - Venous NO GROWTH AFTER 2 DAYS Anaerobic Blood Culture - Preliminary NO GROWTH AFTER 2 DAYS Med Orders - Current: Current Medications Acetaminophen (Tylenol) 650 mg PO Q4H PRN PRN Reason: Pain/Fever Acetaminophen (Tylenol Arthritis Pain) 650 mg PO BID@0800,2000 [facility] Last Admin: 01/13/17 08:42 Dose: 650 mg Albuterol/Ipratropium (Duoneb 3.0-0.5 Mg/3 Ml) 3 ml NEB Q4HRRT [facility] Last Admin: 01/13/17 09:11 Dose: 3 ml Arformoterol Tartrate (Brovana) 15 mcg INH BID@1000,2200 [facility] Last Admin: 01/13/17 10:51 Dose: Not Given Aspirin (Halfprin) 81 mg PO DAILY@1200 [facility] Last Admin: 01/12/17 13:26 Dose: 81 mg Atorvastatin Calcium (Lipitor) 40 mg PO BEDTIME [facility] Last Admin: 01/12/17 20:59 Dose: 40 mg Atropine Sulfate (Atropine 0.1 Mg/Ml) 0 mg IVPUSH ASDIRECTED PRN PRN Reason: Heart Bisacodyl (Dulcolax) 10 mg RECTAL BEDTIME PRN PRN Reason: Constipation Last Admin: 01/12/17 01:51 Dose: 10 mg Budesonide (Pulmicort) 0.5 mg INH BIDRT [facility] Last Admin: 01/13/17 06:59 Dose: 0.5 mg Carvedilol (Coreg) 18.75 mg PO BID@08,1999 [facility] Last Admin: 01/13/17 08:41 Dose: 18.75 mg Cholecalciferol (Vitamin D3) 2,000 units PO DAILY@1200 [facility] Last Admin: 01/12/17 13:27 Dose: 2,000 units Clopidogrel Bisulfate (Plavix) 75 mg PO DAILY [facility] Last Admin: 01/13/17 08:44 Dose: 75 mg Divalproex Sodium (Divalproex Sodium) 500 mg PO TIDMEALS [facility] Enoxaparin Sodium (Lovenox) 40 mg SUBCUT DAILY [facility] Epinephrine HCl (Epinephrine 1:10,000) 1 mg IVPUSH ASDIRECTED PRN PRN Reason: Heart Escitalopram Oxalate (Lexapro) 20 mg PO DAILY@0800 [facility] Last Admin: 01/13/17 08:42 Dose: 20 mg Ferrous Sulfate (Ferrous Sulfate) 325 mg PO BIDMEALS [facility] Last Admin: 01/13/17 08:42 Dose: 325 mg Finasteride (Proscar) 5 mg PO DAILY@0800 [facility] Last Admin: 01/13/17 08:44 Dose: 5 mg Fluticasone Propionate (Flonase) 0 gm NASBOTH DAILY PRN PRN Reason: paranasal sinus disease Furosemide (Lasix) 40 mg PO DAILY@0800 [facility] Last Admin: 01/13/17 08:43 Dose: 40 mg Gabapentin (Neurontin) 300 mg PO BID@799,1999 [facility] Last Admin: 01/13/17 08:44 Dose: 300 mg Vancomycin HCl 1.25 gm/ Sodium (Chloride) 275 mls @ 138 mls/hr IV Q24H [facility] Last Admin: 01/12/17 16:11 Dose: 100 mls/hr Levofloxacin/Dextrose (Levaquin In D5w 250 Mg/50 Ml) 50 mls @ 50 mls/hr IV Q24H [facility] Last Admin: 01/12/17 13:25 Dose: 50 mls/hr Insulin Aspart (Novolog) 0 unit SUBCUT 0730,1130,1730,2100 [facility] PRN Reason: Protocol Last Admin: 01/13/17 08:38 Dose: 1 units Insulin Detemir (Levemir) 85 unit SUBCUT 0800 [facility] Last Admin: 01/13/17 08:46 Dose: 85 units Lidocaine HCl (Xylocaine 2%) 0 mg IVPUSH ASDIRECTED PRN PRN Reason: Heart Liraglutide (Victoza) 0.6 mg SUBCUT DAILY [facility] Multivitamins/Minerals (Centrum) 1 tab PO DAILY@1200 [facility] Last Admin: 01/12/17 13:26 Dose: 1 tab Nitroglycerin (Nitrostat) 0.4 mg SL ASDIRECTED PRN PRN Reason: Heart Nystatin (Nystop) 0 gm TOP DAILY PRN PRN Reason: Cutaneous Candidiasis Last Admin: 01/11/17 16:59 Dose: 1 applic Polyethylene Glycol (Miralax) 17 gm PO DAILY [facility] Last Admin: 01/13/17 08:44 Dose: 17 gm Quetiapine Fumarate (Seroquel) 250 mg PO BEDTIME [facility] Senna/Docusate Sodium (Senna Plus) 2 tab PO DAILY@1800 [facility] Last Admin: 01/12/17 17:03 Dose: 2 tab Sodium Chloride (Syrex Flush) 5 ml FLUSH Q8HR PRN PRN Reason: Keep Vein Open Sodium Chloride ([place] Nasal [place]) 0 ml NASBOTH Q1H PRN PRN Reason: Congestion Tamsulosin HCl (Flomax) 0.4 mg PO BEDTIME [facility] Last Admin: 01/12/17 20:59 Dose: 0.4 mg Vancomycin HCl (Pharmacy To Dose - Vancomycin) 1 dose .XX ASDIRECTED [facility] Discontinued Medications Acetaminophen (Tylenol) 650 mg PO Q4H PRN PRN Reason: Pain (Mild 1-3)/fever Last Admin: 01/10/17 15:48 Dose: 650 mg Albuterol/Ipratropium (Duoneb 3.0-0.5 Mg/3 Ml) 3 ml NEB ONETIME ONE Stop: 01/10/17 10:10 Last Admin: 01/10/17 10:13 Dose: 3 ml Albuterol/Ipratropium (Duoneb 3.0-0.5 Mg/3 Ml) 3 ml NEB Q4H PRN PRN Reason: Shortness Of Breath/wheezing Last Admin: 01/12/17 08:00 Dose: 3 ml Alprazolam (Xanax) 0.25 mg PO Q6H PRN PRN Reason: Anxiety Last Admin: 01/13/17 04:26 Dose: 0.25 mg Atropine Sulfate (Atropine 0.1 Mg/Ml) 0 mg IVPUSH ASDIRECTED PRN PRN Reason: Heart Budesonide (Pulmicort) 0.5 mg INH DAILY PRN PRN Reason: Shortness of Breath Budesonide (Pulmicort) 0.5 mg INH DAILY@0600 [facility] Clopidogrel Bisulfate (Plavix) 75 mg PO DAILY [facility] Last Admin: 01/11/17 12:29 Dose: Not Given Dextrose/Water (Dextrose 50% In Water) 50 ml IVPUSH ONETIME ONE Stop: 01/11/17 09:31 Last Admin: 01/11/17 05:10 Dose: 50 ml Divalproex Sodium (Divalproex Sodium) 250 mg PO QID@08,12,16,20 [facility] Last Admin: 01/11/17 16:48 Dose: 250 mg Divalproex Sodium (Divalproex Sodium) 500 mg PO QID@08,12,16,20 [facility] Last Admin: 01/13/17 08:43 Dose: 500 mg Epinephrine HCl (Epinephrine 1:10,000) 1 mg IVPUSH ASDIRECTED PRN PRN Reason: Heart Furosemide (Lasix) 20 mg IVPUSH [facility] Stop: 01/11/17 20:01 Last Admin: 01/11/17 20:13 Dose: 20 mg Levofloxacin/Dextrose 500 mg/ (Premix) 100 mls @ 100 mls/hr IV Q24H [facility] Last Admin: 01/11/17 12:29 Dose: Not Given Vancomycin HCl 1 gm/ Sodium (Chloride) 250 mls @ 167 mls/hr IV ONETIME ONE Stop: 01/10/17 12:49 Last Admin: 01/10/17 14:49 Dose: 167 mls/hr Insulin Aspart (Novolog) 0 unit SUBCUT QID [facility] PRN Reason: Protocol Last Admin: 01/11/17 00:10 Dose: Not Given Insulin Detemir (Levemir) 70 unit SUBCUT 1999 [facility] Last Admin: 01/11/17 20:37 Dose: Not Given Insulin Detemir (Levemir) 65 unit SUBCUT ONETIME ONE Stop: 01/11/17 08:18 Last Admin: 01/11/17 08:15 Dose: 65 units Lidocaine HCl (Xylocaine 2%) 0 mg IVPUSH ASDIRECTED PRN PRN Reason: Heart Liraglutide (Victoza) 0.6 mg SUBCUT DAILY@1999 [facility] Last Admin: 01/12/17 19:35 Dose: Not Given Lorazepam (Ativan) 0.5 mg IVPUSH ONETIME ONE Stop: 01/10/17 15:58 Last Admin: 01/10/17 16:18 Dose: 0.5 mg Metformin HCl (Glucophage Xr) 500 mg PO WITHBREAKFAST [facility] Nitroglycerin (Nitrostat) 0.4 mg SL ASDIRECTED PRN PRN Reason: Heart Aquaphor Advanced Therapy Ointment 1 Applic 1 applic TOP BID PRN PRN Reason: dry skin dermatitis Nystatin [Nystatin] (1 Applic) 1 applic TOP DAILY PRN PRN Reason: Rash Selenium Sulfide/Aloe Vera [Selsun Blue Moist 1% Shampoo] 1 applic TOP ASDIRECTED PRN PRN Reason: dry scalp Selenium Sulfide/Aloe Vera [Selsun Blue Moist 1% Shampoo] 1 applic TOP Q7D [facility] Last Admin: 01/10/17 15:59 Dose: Not Given Quetiapine Fumarate (Seroquel) 500 mg PO BEDTIME [facility] Last Admin: 01/12/17 20:59 Dose: 500 mg Sodium Chloride (Syrex Flush) 5 ml FLUSH Q8HR PRN PRN Reason: Keep Vein Open Vancomycin HCl (Pharmacy To Dose - Vancomycin) 1 dose .XX ASDIRECTED [facility] - Exam Quality Assessment: Reports: supplemental oxygen (3 liters nasal cannula) General: Reports: alert, cooperative, lethargic, other (obese) Lungs: Reports: Decreased breath sounds (lower lobes), Crackles (upper lobes) Cardiovascular: Reports: Regular Rate, Regular Rhythm *Q Meaningful Use (DIS) - VTE *Q VTE Criteria *Q: - Stroke *Q Stroke Criteria *Q: - AMI *Q AMI Criteria *Q:
[2017-01-13] MEDS: Cholecalciferol (Vitamin D3) 1,000 Unit Tab PO SCH (12:28)
[2017-01-13] MEDS: Aspirin 81 MG Tab.EC PO SCH (12:30)
[2017-01-13] MEDS: Multivitamins with Minerals/Iron/Folic Acid/Lycopene Tab PO SCH (12:33)
[2017-01-13] MEDS: Levofloxacin/Dextrose 5%-Water 50 ML IV SCH (13:11)
--- NOTE | 2017-01-13 15:42 | OR ---
DATE OF SURGERY: SURGEON: Cher Castaneda MD PREOPERATIVE DIAGNOSIS: The patient has pneumonia, left lung and inadequate peripheral IVs.Marked edema of upper extremities. POSTOPERATIVE DIAGNOSIS: The patient has pneumonia, left lung and inadequate peripheral IVs. marked edema of upper extremities. OPERATION PERFORMED: Insertion of PICC line using ultrasound guidance. DESCRIPTION OF PROCEDURE: Informed consent was obtained from the patient regarding this procedure. All possible complications were thoroughly discussed. The patient understood and wished to proceed. He was kept in supine position. His right upper extremity was thoroughly prepped and draped in the usual fashion. Ultrasound guidance was used and the median basilic vein was imaged and skin was prepped and infiltrated with Xylocaine 1%. The needle was placed into the basilic vein under ultrasound guidance,and a PICC line catheter was placed all the way into the distal SVC at the junction into the the right atrium. This was verified by the Sherlock device as well as x-rays. Good blood flow was obtained. The patient tolerated procedure very well. A StatLock device was applied. There were no complications. /[id number]/MODL MTDD
[2017-01-13] MEDS ORDERED: QUEtiapine 100 MG Tab PO SCH (21:00)
== END 2017-01-13 13:15 | DRG 194 ==
LOC: KA.ED 09:50 → KA.MS 11:13
PROVIDERS: ADMIT Physician Assistant Medical; ATTEND Family Medicine
PROC: 02H633Z Insertion of Infusion Device into Right Atrium, Percutaneous Approach (ICD-10-PCS; principal; 2017-01-13)
DX: J18.9 Pneumonia, unspecified organism (principal); L03.115 Cellulitis of right lower limb; E78.00 Pure hypercholesterolemia, unspecified; I10 Essential (primary) hypertension; Z68.41 Body mass index [BMI] 40.0-44.9, adult; R09.02 Hypoxemia; N18.9 Chronic kidney disease, unspecified; D72.829 Elevated white blood cell count, unspecified; E11.9 Type 2 diabetes mellitus without complications; Z87.891 Personal history of nicotine dependence; Z90.5 Acquired absence of kidney; Z88.8 Allergy status to other drugs, medicaments and biological substances; Z79.899 Other long term (current) drug therapy; Z79.82 Long term (current) use of aspirin; Z79.4 Long term (current) use of insulin; J44.9 Chronic obstructive pulmonary disease, unspecified; R60.9 Edema, unspecified; E66.8 Other obesity; D64.9 Anemia, unspecified; E78.5 Hyperlipidemia, unspecified; I12.9 Hypertensive chronic kidney disease with stage 1 through stage 4 chronic kidney disease, or unspecified chronic kidney disease; E11.22 Type 2 diabetes mellitus with diabetic chronic kidney disease; N18.3 Chronic kidney disease, stage 3 (moderate); M54.9 Dorsalgia, unspecified; M54.2 Cervicalgia; G89.29 Other chronic pain; F32.9 Major depressive disorder, single episode, unspecified; M19.90 Unspecified osteoarthritis, unspecified site; I25.10 Atherosclerotic heart disease of native coronary artery without angina pectoris; N40.0 Benign prostatic hyperplasia without lower urinary tract symptoms; R06.02 Shortness of breath
CPT/HCPCS: 36415; 36430; 36569; 36600; 71010; 80048; 80053; 82550; 82553; 82803; 82962; 83880; 84484; 85025; 85610; 85730; 86850; 86900; 86901; 86920; 86922; 87040; 87070; 87077; 87186; 87205; 93005; 94640; 99285; A9270-GY; J1650; J1815-GY; J1940; J1956; J2060; J3370; J3490; J7050; J7060; P9016

== ENCOUNTER 2017-02-12 14:10 | Emergency (ER) | payer MEDICARE, MEDICAID ==
--- NOTE | 2017-02-12 14:52 | EDM.PDOC ---
ED HPI GENERAL MEDICAL PROBLEM - General Chief Complaint: General Stated Complaint: heel pain Time Seen by Provider: 02/12/17 14:40 Source of Information: Reports: Patient, Senior Living Records, Old Records History Limitations: Reports: Other (poor historian) - History of Present Illness INITIAL COMMENTS - FREE TEXT/NARRATIVE: Patient's states that his only complaint today is right heel pain where he has a protective foam boot for heel ulcer. I did call the shelter where the patient resides and the prior nurse it was taking care of the patient was concerned about him being tachycardic and short of breath. I asked the patient if he feels that he is increasingly short of breath and he states that he is always short of breath and it has not worsened. He has been on continuous oxygen 4 L while in the shelter. He did have a inpatient hospital stay in [place] in mid January for pneumonia. He had a new onset of atrial fibrillation which was consult by cardiology. His blood sugars have been elevated running anywhere in the high 200s up to 400 for the past month. His diabetic medications had been changed while he was in the hospital. His blood sugars have not improved. He currently is denying any chest pain, palpitations. He is a minimal ambulator mainly bed to chair transfers only. The nurse had called the attending PA and felt that he should be evaluated in the emergency room and now presents to our emergency room brought in by their shelter van. Patient has very poor historian and most of his history and past medical history is obtained through his medical record charts and discussion with the nurse at the shelter. Onset: Gradual Duration: Week(s):, Constant Location: Reports: Lower Extremity, Right Quality: Reports: Burning Severity: Moderate Improves with: Reports: None Worsens with: Reports: Other (pressure on the heel) Associated Symptoms: Reports: Shortness of Breath. Denies: Confusion, Chest Pain, Cough, Diaphoresis, Fever/Chills, Loss of Appetite, Nausea/Vomiting, Rash , Syncope Right Feet Pain Score (Numeric/FACES): 3 - Related Data Allergies Allergy/AdvReac Type Severity Reaction Status Date / Time nefazodone Allergy Cannot Verified 02/12/17 14:42 Remember trazodone Allergy Cannot Verified 02/12/17 14:42 Remember Home Meds: Home Meds Acetaminophen [Tylenol Arthritis] 1 tab PO BID@08,199907/22/16 [History] Acetaminophen [Tylenol] 650 mg PO Q4H PRN 07/22/16 [History] Aspirin [Halfprin] 1 tab PO DAILY@1200 07/22/16 [History] Bisacodyl [Dulcolax] 10 mg RECTAL BEDTIME PRN 07/22/16 [History] Carvedilol 18.75 mg PO BID@0800,1800 07/22/16 [History] Clopidogrel [Plavix] 75 mg PO DAILY 07/22/16 [History] Finasteride 5 mg PO DAILY@0800 07/22/16 [History] Fluticasone Propionate [Flonase] 2 spray NASBOTH DAILY PRN 07/22/16 [History] Gabapentin [Neurontin] 300 mg PO TID@0700,1400,2200 07/22/16 [History] Multivitamin [Men's Multi-Vitamin] 1 tab PO DAILY@1200 07/22/16 [History] Sennosides/Docusate Sodium [Senna S Tablet] 2 tab PO DAILY@1800 07/22/16 [ History] Sodium Chloride [Saline Nasal [place]] 1 spray NASBOTH Q1H PRN 07/22/16 [History] Tamsulosin [Flomax] 0.4 mg PO BEDTIME 07/22/16 [History] atorvaSTATin [Lipitor] 40 mg PO BEDTIME 07/22/16 [History] Cholecalciferol (Vitamin D3) [Vitamin D3] 2,000 unit PO DAILY@1200 12/15/16 [ History] Divalproex Sodium 500 mg PO TID@0800,1400,199912/15/16 [History] Furosemide 40 mg PO DAILY@0800 12/15/16 [History] Nystatin [Nystop] 1 applic TOP DAILY PRN 12/15/16 [History] Selenium Sulfide/Aloe Vera [Selsun Blue Moist 1% Shampoo] 1 applic TOP WEEKLY [History] Ferrous Sulfate 325 mg PO BIDMEALS #90 12/18/16 [Rx] Albuterol Sulfate [Proair Hfa] 2 puff INH Q4H PRN 02/12/17 [History] Escitalopram [Lexapro] 10 mg PO DAILY@0800 02/12/17 [History] Fluticasone/Salmeterol [Advair 250-50 Diskus] 1 puff INH BID@0800,199902/12/17 [History] Insulin Aspart [Novolog Flexpen] 12 units SQ TIDAC 02/12/17 [History] Insulin Detemir [Levemir Flextouch] 80 units SQ BEDTIME 02/12/17 [History] Nitroglycerin 0.4 mg SL ASDIRECTED PRN 02/12/17 [History] Polyethylene Glycol 3350 [Miralax] 1 pkt PO DAILY@0800 02/12/17 [History] QUEtiapine [SEROquel] 100 mg PO BEDTIME 02/12/17 [History] Sodium Chloride for Inhalation [Sodium Chloride] 4 ml IH BID@829,202902/12/17 [History] Tiotropium [Spiriva HandiHaler] 1 cap INH DAILY 02/12/17 [History] Past Medical History HEENT History: Reports: Cataract Cardiovascular History: Reports: High Cholesterol, Hypertension Respiratory History: Reports: COPD Other Respiratory History: Emphysema Gastrointestinal History: Reports: Other (See Below) Other Gastrointestinal History: Other diseases of the digestive system Genitourinary History: Reports: Chronic Renal Insuffiency Other Genitourinary History: left nephrectomy 1999 Musculoskeletal History: Reports: Back Pain, Chronic, Neck Pain, Chronic, Osteoarthritis Neurological History: Reports: Other (See Below) Other Neuro History: confusion Psychiatric History: Reports: Addiction, Depression Endocrine/Metabolic History: Reports: Diabetes, Type II, Other (See Below) Other Endocrine/Metabolic History: noontoxic mutinodular goiter Oncologic (Cancer) History: Reports: Renal Dermatologic History: Reports: Decubitus Ulcer - Infectious Disease History Infectious Disease History: Reports: Other (See Below) Other Infectious Disease History: unknown - Past Surgical History HEENT Surgical History: Reports: Cataract Surgery Cardiovascular Surgical History: Reports: None Respiratory Surgical History: Reports: None GI Surgical History: Reports: None Oncologic Surgical History: Reports: Other (See Below) Other Oncologic Surgeries/Procedures: left nephrectomy (10 radiation treatments ) 1999 Social & Family History - Family History Family Medical History: Noncontributory HEENT: Reports: Cataract, Macular Degeneration Cardiac: Reports: CT (Father with myocardial infarction) Respiratory: Reports: None GI: Reports: None : Reports: Renal Disease/Insufficiency, Other (See Below) Musculoskeletal: Reports: None Neurological: Reports: None Psychiatric: Reports: None Endocrine/Metabolic: Reports: None Hematologic: Reports: None Immunologic: Reports: None Dermatologic: Reports: None Oncologic: Reports: None - Tobacco Use Smoking Status *Q: Former Smoker Years of Tobacco use: 30 Packs/Tins Daily: 2 Used Tobacco, but Quit: Yes Month Tobacco Last Used: 2016 - Caffeine Use Caffeine Use: Reports: Soda Other Caffeine Use: unknown - Recreational Drug Use Recreational Drug Use: No ED ROS GENERAL - Review of Systems Review Of Systems: See Below Constitutional: Denies: Fever, Diaphoresis HEENT: Reports: No Symptoms Respiratory: Reports: Shortness of Breath. Denies: Cough, Sputum Cardiovascular: Reports: Dyspnea on Exertion, Edema. Denies: Chest Pain, Orthopnea, Palpitations, Syncope Endocrine: Reports: High Glucose GI/Abdominal: Denies: Abdominal Pain, Bloody Stool, Constipation, Nausea, Vomiting : Reports: Incontinence. Denies: Dysuria Musculoskeletal: Reports: Foot Pain (right heel) Skin: Reports: Dryness. Denies: Diaphoresis Neurological: Denies: Confusion, Dizziness, Headache, Trouble Speaking, Change in Speech ED EXAM, GENERAL - Physical Exam Exam: See Below Exam Limited By: No Limitations General Appearance: Alert, No Apparent Distress, Obese Eye Exam: Bilateral Eye: EOMI, PERRL Ears: Normal External Exam Ear Exam: Bilateral Ear: TM normal Nose: Normal Inspection, No Blood Throat/Mouth: Normal Inspection, Normal Voice, No Airway Compromise Head: Atraumatic Neck: Normal Inspection, Supple Respiratory/Chest: Lungs Clear, Decreased Breath Sounds (left lung base). No: Crackles, Rhonchi, Wheezing Cardiovascular: No JVD, Tachycardia Peripheral Pulses: 2+: Carotid (L), Carotid (R), Dorsalis Pedis (L), Dorsalis Pedis (R) GI/Abdominal: Normal Bowel Sounds, Soft, Non-Tender, No Abnormal Bruit, No Mass Rectal (Males) Exam: Normal Exam, Other (no evidence of decubitus ulcer that was noted previously from hospital stay in mid January) Back Exam: No: Paraspinal Tenderness, Vertebral Tenderness Extremities: Slow Capillary Refill, Other (there is a right heel pressure ulcer with no evidence of skin breakdown there is bruising and tenderness to the area) . No: Pedal Edema, Increased Warmth, Redness Neurological: Alert, Oriented, Normal Cognition Psychiatric: Normal Affect, Depressed Mood Skin Exam: Warm, Dry, Intact, No Rash. No: Rash Lymphatic: No Adenopathy EKG INTERPRETATION EKG Date: 02/12/17 Time: 15:45 Rhythm: A-Flutter Rate (Beats/Min): 111 ST-T: Normal Course - Vital Signs Last Recorded V/S: Last Vital Signs Temp 98.9 F 02/12/17 14:37 Pulse 111 H 02/12/17 14:37 Resp 31 H 02/12/17 14:37 BP Pulse Ox 96 02/12/17 14:37 - Orders/Labs/Meds Orders: Active Orders 24 hr Category Date Time Status EKG Documentation Completion [RC] ASDIRECTED Care 02/12/17 15:05 Active CXR [Chest 2V] [CR] Stat Exams 02/12/17 15:05 Ordered Foot Comp Min 3V Rt [CR] Stat Exams 02/12/17 15:09 Ordered UA W/MICROSCOPIC [URIN] Stat Lab 02/12/17 15:03 Uncollected EKG 12 Lead [EK] Routine Ther 02/12/17 15:04 Ordered Labs: Laboratory Tests 02/12/17 02/12/17 Range/Units 15:40 15:40 WBC 6.5 (5.0-10.0) 10^3/uL RBC 3.39 L (4.50-6.00) 10^6/uL Hgb 10.4 L (13.0-17.0) g/dL Hct 30.9 L (40.0-52.0) % MCV 91.2 (82.0-92.0) fL MCH 30.7 (27.0-31.0) pg MCHC 33.7 (32.0-36.0) g/dL RDW 17.6 H (11.5-14.5) % Plt Count 218 (150-300) 10^3/uL MPV 7.0 L (7.4-10.4) fL Neut % (Auto) 50.4 (50.0-70.0) % Lymph % (Auto) 27.2 (20.0-40.0) % [place] % (Auto) 18.0 H (2.0-8.0) % Eos % (Auto) 3.4 H (1.0-3.0) % Baso % (Auto) 1.0 (0.0-1.0) % Neut # (Auto) 3.2 (2.5-7.0) 10^3/uL Lymph # (Auto) 1.8 (1.0-4.0) 10^3/uL [place] # (Auto) 1.2 H (0.1-0.8) 10^3/uL Eos # (Auto) 0.2 (0.1-0.3) 10^3/uL Baso # (Auto) 0.1 (0.0-0.1) 10^3/uL ESR 62 H (0-15) mm/hr Sodium 136 (136-145) mmol/L Potassium 4.1 (3.3-5.3) mmol/L Chloride 94 L (98-115) mmol/L Carbon Dioxide 39.8 H (21.0-32.0) mmol/L BUN 19 (6-25) mg/dL Creatinine 1.22 H (0.51-1.17) mg/dL Est Cr Clr Drug Dosing 52.30 mL/min Estimated GFR (MDRD) 59 mL/min Glucose 353 H (70-110) mg/dL Calcium 9.4 (8.7-10.3) mg/dL Total Bilirubin 0.3 (0.2-1.0) mg/dL AST 33 (15-37) U/L ALT 24 (12-78) U/L Alkaline Phosphatase 91 (46-116) IU/L Troponin I 0.07 (0.00-0.070) ng/mL C-Reactive Protein 3.0 H (0.0-0.9) mg/dL B-Natriuretic Peptide 100 (0-100) pg/mL Total Protein 6.9 (6.4-8.2) g/dL Albumin 2.31 L (3.00-4.80) g/dL - Radiology Interpretation Free Text/Narrative:: X-ray chest PA and lateral Findings: Correlation is made with the exam of January 10, 2017 Volume loss at the left lung base again is seen small bilateral effusions are seen, persistent pathology at the left lung base is seen. Impression Persistent pathology left lung base with associated atelectasis. Departure - Departure Time of Disposition: 17:30 Disposition: DC/Tfer to Care Home [facility] 61 Condition: Fair Clinical Impression: Hyperglycemia, Atrial flutter by electrocardiography, COPD not affecting current episode of care, Pressure ulcer of right heel, stage 1 - Discharge Information Instructions: How to Prevent Pressure Injuries, Atrial Flutter Referrals: Priscilla Castaneda MD [Primary Care Provider] - Forms: ED Department Discharge Additional Instructions: 1. Continue with the patient's regular scheduled medications until follow-up with Dr. Priscilla Castaneda. 2. Patient has a cardiology consult next week and will keep this appointment. 3. Dr. Priscilla Castaneda will be notified for rounding next Wednesday at the shelter to see Mr. Sanchez. 4. Patient is currently wearing a pressure ulcer boot on the right, I've also discussed with the nursing staff the importance of floating that heel, and placing the pillows under the calf and not at the heel itself. 5. Patient is discharged back to shelter in stable condition, I also discussed this with Marian Levy NP, who is on-call this evening with [facility] and is agrees that the patient could be followed up as outpatient during the shelter rounds. - My Orders Last 24 Hours: My Active Orders 02/12/17 15:03 UA W/MICROSCOPIC [URIN] Stat 02/12/17 15:04 EKG 12 Lead [EK] Routine 02/12/17 15:05 EKG Documentation Completion [RC] ASDIRECTED CXR [Chest 2V] [CR] Stat 02/12/17 15:09 Foot Comp Min 3V Rt [CR] Stat - Assessment/Plan Last 24 Hours: My Active Orders 02/12/17 15:03 UA W/MICROSCOPIC [URIN] Stat 02/12/17 15:04 EKG 12 Lead [EK] Routine 02/12/17 15:05 EKG Documentation Completion [RC] ASDIRECTED CXR [Chest 2V] [CR] Stat 02/12/17 15:09 Foot Comp Min 3V Rt [CR] Stat Assessment:: 1. Right heel pain. Pressure ulcer. 2. SOB with COPD on Continues home O2. O2 sats stable 3. IDDM, elevated BS secondary to recent infections pneumonia, chronic disease. 4. Atrial Fibulation. Cardiology consulted and f/u appt next week. Plan: 1. Continue with the patient's regular scheduled medications until follow-up with Dr. Priscilla Castaneda. 2. Patient has a cardiology consult next week and will keep this appointment. 3. Dr. Priscilla Castaneda will be notified for rounding next Wednesday at the shelter to see Mr. Sanchez. 4. Patient is currently wearing a pressure ulcer boot on the right, I've also discussed with the nursing staff the importance of floating that heel, and placing the pillows under the calf and not at the heel itself. 5. Patient is discharged back to shelter in stable condition, I also discussed this with Marian Levy NP, who is on-call this evening with [facility] and is agrees that the patient could be followed up as outpatient during the shelter rounds.
[2017-02-12 22:03] VITALS: BP 143/63
== END 2017-02-12 17:30 ==
LOC: KA.ED 14:10
DX: L89.611 Pressure ulcer of right heel, stage 1 (principal); I48.92 Unspecified atrial flutter; I12.9 Hypertensive chronic kidney disease with stage 1 through stage 4 chronic kidney disease, or unspecified chronic kidney disease; E11.22 Type 2 diabetes mellitus with diabetic chronic kidney disease; E11.65 Type 2 diabetes mellitus with hyperglycemia; N18.9 Chronic kidney disease, unspecified; E78.00 Pure hypercholesterolemia, unspecified; J44.9 Chronic obstructive pulmonary disease, unspecified; R06.02 Shortness of breath; F32.9 Major depressive disorder, single episode, unspecified; Z85.53 Personal history of malignant neoplasm of renal pelvis; Z98.49 Cataract extraction status, unspecified eye; Z90.5 Acquired absence of kidney; Z87.891 Personal history of nicotine dependence; Z79.4 Long term (current) use of insulin; Z79.02 Long term (current) use of antithrombotics/antiplatelets; Z79.82 Long term (current) use of aspirin; Z79.899 Other long term (current) drug therapy; Z88.8 Allergy status to other drugs, medicaments and biological substances
CPT/HCPCS: 36415; 71020; 73630-RT; 80053; 83880; 84484; 85025; 85651; 86140; 93005; 99285